=== PATIENT | female | born 1945 | race Caucasian/White ===

== ENCOUNTER 2019-04-28 06:04 | Inpatient (IN) | payer OTHER, SELFPAY ==
[2019-04-14 08:35] VITALS: BMI 30.6
[2019-04-28] VITALS (18 sets, daily range): BP systolic 109–160; BP diastolic 46–76; PULSE 72–87; RESP 10–20; TEMP 36.1–37; O2SAT 3–98; BMI 29.2
--- NOTE | 2019-04-28 06:37 | DI.RAD.S_ITS ---
PROCEDURE: XR SHOULDER RT 1V INDICATIONS: post op TECHNIQUE: Single AP view of the shoulder were acquired. COMPARISON: None. FINDINGS: Bones: Status post right shoulder arthroplasty. No acute hardware complication. Soft tissue drain is noted in the region. No acute fracture or dislocation. No suspicious bony lesions. Visualized ribs appear intact. Soft tissues: No suspicious soft tissue calcifications. IMPRESSION: Status post right shoulder arthroplasty. No acute hardware complications identified. Dictated by: Jason Vela M.D. on 04/28/2019 at 14:42 Approved by: Jason Vela M.D. on 04/28/2019 at 14:43
[2019-04-28] MEDS: LACTATED RINGERS 1,000 ML 42 ML IV ×2 (07:14→09:58)
[2019-04-28] MEDS: PREGABALIN 75 MG CAPSULE PO (07:17)
[2019-04-28] MEDS: ACETAMINOPHEN 325 MG TABLET 975 MG PO ×2 (07:17→20:56)
[2019-04-28] MEDS: MIDAZOLAM 2 MG/2 ML VIAL IV (08:05)
--- NOTE | 2019-04-28 08:09 | PM.PREOP ---
Pre-operative Note Interval Note History & Physical reviewed/Exam performed by Physician: Yes Changes to H&P: No
--- NOTE | 2019-04-28 08:12 | SUR.PREOP ---
Block start time [0805] . Monitoring initiated and maintained throughout procedure. Oxygen and medications given per anesthesiologist instructions. Patient remained stable throughout procedure, no adverse reactions noted. Block end time [0810]. Pt taken directly into the OR after completion of block in stable condition, vss.
[2019-04-28] MEDS: CEFAZOLIN 2 GM/100 ML FROZ.PIGGY IV (08:16)
--- NOTE | 2019-04-28 08:43 | SUR.OPER ---
Beach chair with Schlein shoulder positioner. Lower body on purple pads on padded OR bed. Head in foam padded head cradle, secured with straps. Non-operative arm secured <90 degrees abduction. Pillow under knees. Safety belt at thigh. Cloth tape over blanket over lower legs.
[2019-04-28] MEDS: THROMBIN (RECOMBINANT) 5,000 UNIT VIAL 5000 UNIT TOP (08:51)
[2019-04-28] MEDS: BUPIVACAINE 0.5% W/ EPI (PF) VIAL 30 ML INJ (08:51)
[2019-04-28] MEDS: TRANEXAMIC ACID 1,000 MG VIAL 1000 MG IV ×2 (08:54→09:44)
--- NOTE | 2019-04-28 08:56 | P.PCN_ITS ---
Procedures Date/Time Date of procedure: 04/28/19 Time of procedure: 07:59 Nerve Block Time out performed: Yes Local anesthetic used: other (10mL 0.5ropivacaine, 5mL 1* lidocaine) Location of anesthetic used: interscalene Amount of anesthesia used (mL): 20 Nerve blocks: brachial plexus (interscalene) Procedure successful: Yes Patient tolerated procedure: well Complications: none Additional comments: RIGHT Brachial plexus nerve block for post operative pain management. Risks and benefits discussed, including bleeding, infection, intravascular injection, nerve damage, block failure. Time out. Site marked, consent verified. Standard ASA monitors, NC O2. Pt supine. 1mg versed. Chloroprep site preparation, sterile technique. Brachial plexus identified with US guidance, traced from supraclavicular to interscalene. 1mL 2% lidocaine skin wheal. 22g x 50mm Pajunk advanced with in-plane US guidance to brachial plexus. Negative aspiration. LA injected with intermittent negative aspiration. Good LA spread noted on US. No pain, no paraesthesia. Pt tolerated procedure well. Vital signs stable.
--- NOTE | 2019-04-28 10:15 | PM.OP.1 ---
Operative Date/Time/Diagnoses Date of procedure: 04/28/19 Time of procedure: 10:00 Pre-op diagnosis: Right shoulder osteoarthritis Post-op diagnosis: same Procedure & Clinicians Procedure: Right total shoulder replacement Same procedure as scheduled: Yes Indications: The patient has had progressively worsening right shoulder pain with radiographic changes consistent with arthritis. Non-operative management has failed and the patient has requested total shoulder replacement. The risks, benefits and alternatives to surgery were discussed with the patient prior to proceeding. Risks discussed included, but were not limited to, failure to relieve pain, stiffness, infection, nerve damage, deep venous thrombosis, pulmonary embolism, stroke, coma, heart attack, permanent paralysis and , as well as the potential need for eventual revision of the prosthetic. Surgeon: Andrew Snider Human Resources Operations Coordinator: Whitney Brock Click Yes if Unassisted: No Anesthesia Type: General, Peripheral nerve block and Local Operative Notes Findings: Moderately severe osteoarthritis with early B2 glenoid. Closure Type: primary Specimen(s): none sent Prosthetic devices, grafts, tissues, transplants, or devices: Prosthetics used in this procedure were manufactured by the [employer] and included an Altivate short stem total shoulder system with a size 12 humeral stem, a neutral humeral neck and a 46 mm x 16 mm offset humeral head. In addition a 46 mm all polyethylene pegged E +glenoid was used. Applied: catheter Estimated Blood Loss (mL): 100 Blood products transfused: none Procedure in detail: The patient was seen in the pre-operative area, where the patient identified the right shoulder as the operative site and this was marked with my initials. The patient received pre-operative antibiotics, underwent an interscalene block, and was taken to the operating room and placed on the operative table in the supine position. After satisfactory anesthesia, a full ?time out? was performed. The patient was repositioned in the ?beach chair? position using a dedicated positioner. All pressure points were well padded, and the knees were slightly bent to prevent tension on the sciatic nerves. The right arm was prepared from the fingers to the base of the neck with ChloroPrep in the usual fashion and draped through sterile drapes. An approximately 15 cm incision was created, starting at the clavicle above the coracoid process and extended towards the deltoid insertion. The deltopectoral interval was used to access the shoulder. The cephalic vein was taken medially, but was damaged while attempting to cauterize some feeding vessels and therefore had to be cauterized itself. A self retaining retractor was placed. The upper centimeter of the pectoralis major tendon was released. The ?three sisters? were identified and cauterized. The axillary nerve was palpated and protected throughout the case. The biceps was released from its groove and tenodesed over the top of the pectoralis major tendon. The subscapularis was released from the lesser tuberosity with a subscapularis peel and tagged for later repair. The shoulder was dislocated and a cutting guide was used for the proximal humeral osteotomy in 30 degrees of retroversion. A starter reamer was used followed by the cylindrical reamers. This continued in larger sizes in till cortical bite was achieved. Sequential broaching was then performed until a line to line fit with the reamer occurred. A proximal humeral protector was then placed. We then removed the self-retaining retractor and placed retractors to access the glenoid. The subscapularis was released with a ?360 degree release? with care being taken to protect the axillary nerve with the inferior portion of this procedure. The remnant of labrum and biceps stump were removed. The appropriate size reamer was chosen with the glenoid sizer, and the guide pin placed. The glenoid was appropriately reamed. The guide for the peripheral holes was used and the center hole enlarged. The trial glenoid was placed with good stability. We then cemented the final implant into place after irrigating the peg holes and drying them with thrombin-soaked Gelfoam. We returned our attention to the humerus, a trial humeral head was applied and a trial reduction performed. Stability was checked with 50% posterior translation with spontaneous reduction, 45? external rotation at the side with the subscapularis held on the repaired position, and 70? of internal rotation in the ?scarecrow position?. This was felt to be satisfactory and the appropriate implants were opened. Five holes were drilled along the humeral osteotomy and #2 TiCron sutures placed for eventual subscapularis repair. The humeral prosthetic was impacted into the humerus. The humeral head was applied when the stem was still slightly proud and impacted to both seat the head and fully seat the stem. The joint was relocated one final time. The joint was irrigated and the subscapularis repaired to the previously placed sutures using Bryan-Raymond sutures. The top of the subscapularis was closed to the leading edge of the supraspinatus with a figure of 8 #2 TiCron to close the rotator interval. A deep drain was placed and brought out supero-laterally. The deltopectoral interval was closed with interrupted 0 Vicryl. The subcutaneous layer was closed with 3-0 Vicryl, and the skin with a running 3-0 V-Lock suture and SteriStrips. An Aquacel Ag dressing was applied, the patient?s arm was placed in a sling, and the patient was taken to recovery having tolerated the procedure well. Complications: none Post-operative Condition: stable Disposition: PACU Plan for aftercare: The patient will be maintained on a standard total shoulder replacement protocol with passive range of motion limited to 90 degrees forward flexion, 0 degrees external rotation at the side, 0 degrees abduction and internal rotation to the body. The patient will receive aspirin and sequential compression devices for DVT prophylaxis. The patient will be discharged home when safe for the home environment, likely tomorrow.
--- NOTE | 2019-04-28 11:00 | SUR.PHASEI ---
Patient somnolent, but arouses to voice. MORRIS's x 4. Answers simple questions appropriately. Cap refill , 3 seconds to right hand. Dressing CDI. Will continue to monitor.
[2019-04-28] MEDS: LACTATED RINGERS 1,000 ML 125 ML IV ×2 (11:45→19:32)
[2019-04-28] MEDS: ONDANSETRON 4 MG/2 ML INJ IV ×2 (14:20→18:22)
--- NOTE | 2019-04-28 15:53 | PT.IIE ---
Current Diagnoses Primary osteoarthritis, right shoulder (04/28/19) Surgery Performed Operation Date: 04/28/19 07:45 Actual Procedures p Total Shoulder Arthroplasty, biceps tendonesis(Right) - Andrew Snider MD Surgical History (Last Updated 04/14/19 @ 09:22 by Jennifer Walker, RN) History of colonoscopy (Acute) History of esophagogastroduodenoscopy (EGD) (Acute) Hx of appendectomy (Acute) Hx of bilateral cataract extraction (Acute ~2018) Hx of dilation and curettage (Acute) Hx of hemorrhoidectomy (Acute) Hx of tonsillectomy (Acute) Medical History (Last Updated 04/14/19 @ 12:50 by Jennifer Walker RN) Bronchitis (Acute) Chronic neck and back pain (Acute) Easy bruisability (Acute) GERD (gastroesophageal reflux disease) (Acute) H/O: hysterectomy (Acute) History of IBS (Acute) HTN (hypertension) (Acute) Impaired fasting glucose (Acute) Kidney stones (Acute) Prolapse of bladder (Acute) Stomach ulcer due to nonsteroidal anti-inflammatory drug (NSAID) (Acute) Physical Therapy Inpatient Evaluation/Re-Eval M1 PT/OT-IP Prior Functional Status Start: 04/28/19 17:30 Freq: NEEDED Status: Active Protocol: Document 04/28/19 15:53 AB (Rec: 04/28/19 18:07 AB [id number]) Medical Review Prior Functional Status Medical History Reviewed Yes Communication able to make needs known Mobility and Gait pt stated that she is independent with all mobilities and ambulation without AD Social History Household Members spouse,family Living Arrangements House Number of Floors (Floors) Two Floors Number of Stairs To Enter/Railing? pt stays on main level of the house has 3 steps with 2 wide rails and can only hold on to one rail at a time Home Environment High Toilet,Walk in Shower Home Equipment Front Wheel Walker,Hand Held Shower M2 PT-IP Current Condition Start: 04/28/19 17:30 Freq: NEEDED Status: Active Protocol: Document 04/28/19 15:53 AB (Rec: 04/28/19 18:07 AB [id number]) Physical Therapy Current Condition Current Condition Evaluation Date 04/28/19 Treatment Diagnosis s/p R TSR; difficulty in walking Onset Date 04/28/19 Precautions Shoulder Precautions Sling,PROM,Internal Rotation to Body,No External Rotation, No Abduction,Forward Flexion to 90 degrees,Pendulums Weight Bearing Status Weight Bearing Status Non-Weight Bearing Allowed Weight Bearing Amount (enter % NWB RUE or #) (%) M3 PT-IP Subjective Start: 04/28/19 17:30 Freq: NEEDED Status: Active Protocol: Document 04/28/19 15:53 AB (Rec: 04/28/19 18:07 AB [id number]) Subjective Physical Therapy Visit Type Type Initial Evaluation Visit Start Time 15:53 Visit Stop Time 16:50 Total Visit Minutes 57 Number of RESEARCH TECHNOLOGIST Visits 0 Physical Therapy Visit Comments Patient Comments pt agreeable to do PT M4 PT-IP Mobility and Gait Start: 04/28/19 17:30 Freq: NEEDED Status: Active Protocol: Document 04/28/19 15:53 AB (Rec: 04/28/19 18:07 AB [id number]) PT-Bed Mobility Assessment Supine to Sit Supine to Sit Minimal Assistance,1 Person Assistance Scooting Scooting to Edge of Bed Standby Assistance PT-Transfer Assessment Sit to and From Stand Sit to and from Stand Minimal Assistance,1 Person Assistance Equipment Transfer Assistive Device Gait Belt Orthotic/Prosthetic Devices or Brace: Yes Transfers Transfer Destination Toilet Transfer Technique pt ambulated without AD Transfer Ability Level of Assist Minimal Assistance,1 Person Assistance Comments Mobility Comments pt agreeable to do PT. completed supine to sit min A and cues. pt was able to sit on EOB SBA. completed sling management and educated pt. completed PROM on R elbow/hand as pt still does not have any motor control. adjusted sling. pt requested to use the toilet. completed sit to stand min A and cues and ambulated without AD. pt presents with unsteady gait. pt stated that she feels fuzzy and slightly run into the side of the wall. pt completed sit to stand from the toilet min A and was able to complete hygiene care with min A for stability. pt ambulated towards the sink min A without AD and completed handwashing CGA. pt requested to sit on the chair. ambulated min A. positioned on the chair. call light and table placed within reach. Gait Assessment Gait Gait Assistance Required: Minimum Assistance Distance (Feet) 10 Able to Maintain Weight Bearing Status Yes During Gait Assistive Devices Assistive Device None,Gait Belt Orthotic/Prosthetic Devices or Brace: Yes Gait Deviations General Gait Pattern Decreased Stride Length, Decreased Feet Clearance Factors Limiting Gait Function Factors Limiting Gait Function Decreased Activity Tolerance, Decreased Sensation,Decreased Strength,Incoordination, Limited Range of Motion,Poor Balance,Poor Safety Awareness Comments Gait Comments please refer to mobiltiy section for details PT-Balance Assessment Sitting Balance and Reactions Static Sitting Balance Ability Good Dynamic Sitting Balance Ability Good Standing Balance and Reactions Static Standing Balance Ability Fair Dynamic Standing Balance Ability Fair Device Used without AD M5 PT-IP Objective Assessments Start: 04/28/19 17:30 Freq: NEEDED Status: Active Protocol: Document 04/28/19 15:53 AB (Rec: 04/28/19 18:07 AB [id number]) Orientation Orientation/Cognition Level of Alertness Alert Orientation Name,Age,Place,Situation Language Function Ability No Deficits Noted Safety Awareness Understands Safety Issues Memory Description No Deficits Noted Gross Range of Motion Lower Extremity ROM Assessment Within Functional Limits Strength Lower Extremity Strength Assessment Within Functional Limits Sensation Assessment Sensation Gross Sensation Right UE Impaired Light Touch Impaired Proprioception (Position) Impaired Sensation Description Numbness Comments Sensation Comments stated that RUE still feels numb but can feel some on incision part Muscle Tone Muscle Tone WNL No Other Assessments Other Other Assessments still does not have motor control on RUE M6 PT-IP Treatment Start: 04/28/19 17:30 Freq: NEEDED Status: Active Protocol: Document 04/28/19 15:53 AB (Rec: 04/28/19 18:07 [id number]) Physical Therapy Treatment Exercises Exercises Elbow Flexion/Extension,Wrist ROM,Hand ROM Education Education Provided Precautions,Weight Bearing Status,Post-Op Packet,Safety Other Treatments Other Treatment Performed educated on don/doff of sling M7 PT-IP Assessment and Plan Start: 04/28/19 17:30 Freq: NEEDED Status: Active Protocol: Document 04/28/19 15:53 AB (Rec: 04/28/19 18:07 [id number]) PT Summary Assessment and Plan Potential Rehabilitation Potential Good Status of Condition at Evaluation Evolving Summary Impairments Pain,ROM,Strength,Balance, Coordination,Sensation,Tone, Cognition,Bed Mobility, Transfers,Gait,Activity Tolerance Assessment Summary pt just had surgery this morning and is requiring min A with mobility. pt will likely improve during hospital stay. d/c plan depending if spouse will be able to safely provide necessary assistance. set up caregiver training between 10-1030 am. will continue to assess. Goals Bed Mobility Goal Standby Assistance Transfer Goal Standby Assistance Gait Goal Standby Assistance Gait Distance 250 Other Goals up/down 3 steps with 1 rail SBA Days to Meet Goals 5 Frequency of Treatment Frequency Of Treatment Twice a Day Treatment Plan Physical Therapy Treatment Plan Bed Mobility Training,Transfer Training,Gait Training, Therapeutic Exercise,Balance Retraining,Post Op Education, Discharge Planning,Hot or Cold Pack,Neuromuscular Re-ed, Coordination Retraining,Manual Therapy Other Recommendations and Next Treatment cargiver training 04/29/19 1030 am Recommendations To Nursing Amount of Assist Needed 1 Person Assist Discharge Recommendations PT Discharge Recommendations Home with Assistance, Outpatient PT
[2019-04-28] MEDS: OXYCODONE IR 5 MG TABLET PO (17:01)
[2019-04-28] MEDS: METOCLOPRAMIDE 10 MG/2 ML INJ IV (19:32)
[2019-04-28] MEDS: LISINOPRIL 20 MG TABLET PO (20:55)
[2019-04-28] MEDS: AMLODIPINE 5 MG TABLET 10 MG PO (20:55)
[2019-04-28] MEDS: ASPIRIN EC 81 MG TABLET PO (20:56)
[2019-04-28] MEDS: NORTRIPTYLINE HCL 25 MG CAPSULE PO (23:24)
[2019-04-29] VITALS: BP 148/71; PULSE 82; RESP 21; TEMP 36.9; O2SAT 93
[2019-04-29] MEDS: LACTATED RINGERS 1,000 ML 125 ML IV (03:30)
[2019-04-29] MEDS: ACETAMINOPHEN 325 MG TABLET 975 MG PO (03:33)
--- NOTE | 2019-04-29 03:55 | PC.NURSE ---
Patient is alert and oriented. Breath sounds CTA with RA sat of 93%. HRR. Denies nausea. BT present and is passing flatus. Voiding on toilet and denies dysuria, frequency or urgency. Able to move self in bed and ambulates to bathroom with SBA. Dressing to right shoulder is CDI; hemovac is intact and compressed. Right UE is in sling; CMS is intact. Does complain of 3/10 pain in right arm but does not want to take Oxycodone as she thinks that may have been what made her nauseated on previous shift, so medicated with morning dose of Tylenol at this time per her request and ice pack applied. Has had bilateral SCD's on, but now requesting they be left off so she can sleep better. Did remind to ankle wave when awake since SCD's now off and patient verbalizes understanding. Fall risk score is low but bed alarm activated for overnight for safety; patient verbalizes understanding.
[2019-04-29 06:20] VITALS: BP 145/70; PULSE 79; RESP 19; TEMP 37.2; O2SAT 93
--- NOTE | 2019-04-29 06:49 | PM.DS.1 ---
History of Present Illness History of Present Illness Date Patient Seen: 04/29/19 Time Patient Seen: 06:50 Chief complaint: [id number] Narrative: History and physical are contained in the chart previously completed note. Please refer to that note for this information. Discharge Providers Provider Date of admission: 04/28/19 06:04 Discharge Date: 04/29/19 Primary care physician: Say Schmidt DO Consults: 04/28/19 11:33 Consult to Discharge Planning Routine Comment: Consult to Physical Therapy Evaluate & Treat Comment: Physician Instructions: Evaluate and Treat Discharge provider: Andrew Snider MD Summary Hospital Course Discharge Diagnosis: Right shoulder osteoarthritis Hospital Course: Patient was admitted to the hospital and taken directly to the operating room on April 28, 2019. She underwent a right total shoulder replacement without complication. On postoperative day 1 she reported she had had some nausea with her oxycodone but otherwise was stable. At the time of this dictation plan is for her to discharge today with hydrocodone for pain medication. Status at Discharge Cognitive/behavioral status at discharge: oriented Functional status at discharge: independent ambulation Overall status at discharge: patient is progressing back to baseline Time Spent with Patient Time spent: Less than 30 minutes Exam Vital Signs (past 8 hours): - 04/29/19 00:00 04/29/19 06:20 Temperature 98.5 F 98.9 F Pulse Rate 82 79 Respiratory Rate 21 19 Blood Pressure 148/71 H 145/70 H Pulse Oximetry 93 93 Fraction of Inspired Oxygen 21 Oxygen Delivery Method Room Air Oxygen Flow Rate 0 Narrative Exam Narrative: Right shoulder wound is dressed with no drainage on the bandage. Light touch is intact in the radial, ulnar, median, musculocutaneous and axillary nerve distribution. She can extend her thumb, abduct her thumb, abduct her fingers, fire her biceps and deltoid. Discharge Plan Discharge Plan Patient Disposition: Home Discharge Med Rec/Prescriptions Prescriptions: New hydrocodone-acetaminophen 5-325 mg Tablet 1 tab PO Q4HR PRN (Reason: Pain, Moderate (4-6)) Qty: 40 RF: 0 aspirin 81 mg Tablet,Delayed Release (Dr/Ec) 81 mg PO BID 14 Days Qty: 28 RF: 0 Continued amlodipine 10 MG tablet 10 mg PO QPM Qty: 0 RF: 0 lisinopril 20 MG tablet 20 mg PO QPM Qty: 0 RF: 0 nortriptyline 25 mg Capsule 25 mg PO BEDTIME RF: 0 omeprazole 20 mg Capsule,Delayed Release(Dr/Ec) 20 mg PO DAILY PRN (Reason: GERD) RF: 0 Multi-Day with Iron 18-400 mg-mcg Tablet 1 tab PO DAILY RF: 0 ascorbic acid (vitamin C) [Vitamin C] 1,000 mg Tablet Extended Release 1,000 mg PO DAILY RF: 0 lactase [Lactaid] 3,000 unit Tablet 3,000 unit PO QAC PRN (Reason: upset stomach) RF: 0 cranberry 400 mg Capsule 400 mg PO DAILY RF: 0 zinc 50 mg Tablet 50 mg PO DAILY RF: 0 Lactobacillus acidophilus [Acidophilus] Capsule 100 mmu cells PO DAILY RF: 0 B-complex with vitamin C [Super B/C] Capsule 1 cap PO DAILY RF: 0 Calcium 600 + D(3) 600 mg calcium- 200 unit Capsule 1 cap PO DAILY RF: 0 cholecalciferol (vitamin D3) [Vitamin D3] 2,000 unit Capsule 4,000 unit PO DAILY RF: 0 omega 2-swx-tlr-fish oil [Fish Oil] 1,000 mg (120 mg-180 mg) Capsule 1 cap PO DAILY RF: 0 [id number] serr [Glucosamine Daily Complex] 1,500-400-100 mg-unit-mg Tablet 1 tab PO DAILY RF: 0 turmeric 400 mg Capsule 2,000 mg PO DAILY RF: 0 Follow up/Referrals: Andrew Snider MD [Physician] - 2 Weeks Say Schmidt DO [Primary Care Provider] - Provider Discharge Instructions Diet: Diet as Tolerated and Regular Activity: You may use your right arm in front of your body below shoulder level. Keep the sling in place except for hygiene and to do your physical therapy exercises. Cold/Heat Therapy: Apply ice for 15 minutes of every hour as needed to the right shoulder for pain. Skin/Wound/Dressing Care Report to your healthcare provider any signs of infection, such as:: chills, fever, night sweats, increased pain, unusual drainage and unusual redness Dressing: Leave the dressing intact until your 1st postoperative follow-up. You may shower with the dressing in place. If the central portion of the dressing becomes saturated with either water or blood, please call the office. Visit Report/Discharge Packet Instructions: DI for Shoulder Replacement Stand Alone Forms: Surgery Discharge Discharge Data Primary Care Provider: Say Schmidt VTE Deep Vein Thrombosis/Pulmonary Embolism Present on Admission: No
[2019-04-29 07:56] LABS: Hematocrit 37.7 % (36-46); Hemoglobin 12.7 g/dL (12.0-16.0); Mean Corpuscular HGB Conc 33.8 % (30-36); Mean Corpuscular Volume 91.8 fL (80-100); Platelet Count 300 X10^3/uL (150-400); Red Cell Distribution Width 13.8 % (11.6-14.8); White Blood Cell Count 23.5 X10^3/uL (4.5-11.0)
[2019-04-29 08:25] VITALS: BP 151/68; PULSE 84; RESP 16; TEMP 37.3; O2SAT 93
[2019-04-29] MEDS: HYDROCODONE/ACET 5/325 TABLET 2 TAB PO (09:01)
--- NOTE | 2019-04-29 09:09 | CM.IDA ---
Initial DCP Assessment Note: Pt is a 73 yo female, resident of [place], now POD#1 from shoulder surgery w/ Dr Snider PCP: Say Schmidt Payer: Kg MCALLISTER Reviewed chart, pt discussed in multidisciplinary rounds this morning. Therapy has cleared pt for return home w/family to assist and pt has planned for home, DC order from [facility] has already been initiated this morning. No needs expected from DC planning team although will remain available in case this changes today. KIM Patel
--- NOTE | 2019-04-29 10:32 | PC.NURSE ---
Hemo vac removed per order. Gauze with tegaderm placed. Patient tolerated well.
--- NOTE | 2019-04-29 11:48 | OT.IP.EVAL ---
Current Diagnoses Primary osteoarthritis, right shoulder (04/28/19) Surgery Performed Operation Date: 04/28/19 07:45 Actual Procedures p Total Shoulder Arthroplasty, biceps tendonesis(Right) - Andrew Snider MD Past Medical History (Last Updated 04/14/19 @ 12:50 by Jennifer Walker, RN) Bronchitis (Acute) Chronic neck and back pain (Acute) Easy bruisability (Acute) GERD (gastroesophageal reflux disease) (Acute) H/O: hysterectomy (Acute) History of IBS (Acute) HTN (hypertension) (Acute) Impaired fasting glucose (Acute) Kidney stones (Acute) Prolapse of bladder (Acute) Stomach ulcer due to nonsteroidal anti-inflammatory drug (NSAID) (Acute) Surgical History (Last Updated 04/14/19 @ 09:22 by Jennifer Walker RN) History of colonoscopy (Acute) History of esophagogastroduodenoscopy (EGD) (Acute) Hx of appendectomy (Acute) Hx of bilateral cataract extraction (Acute ~2018) Hx of dilation and curettage (Acute) Hx of hemorrhoidectomy (Acute) Hx of tonsillectomy (Acute) Occupational Therapy Inpatient Evaluation/Re-Eval M1 PT/OT-IP Prior Functional Status Start: 04/29/19 11:23 Freq: NEEDED Status: Active Protocol: Document 04/29/19 11:23 [facility] (Rec: 04/29/19 11:48 [facility] [id number]) Medical Review Prior Functional Status Medical History Reviewed Yes Communication able to make needs known Mobility and Gait pt stated that she is independent with all mobilities and ambulation without AD Activities of Daily Living and IADL's Pt states completely independent with all ADl and IADl needs. Social History Household Members spouse,family Living Arrangements House Number of Floors (Floors) Two Floors Number of Stairs To Enter/Railing? pt stays on main level of the house has 3 steps with 2 wide rails and can only hold on to one rail at a time Home Environment High Toilet,Walk in Shower Home Equipment Front Wheel Walker,Hand Held Shower Additional Social History Comment Pt grand daughter lives in the house , however home schools young kids in the home as well so not available at all times . M2 OT-IP Current Condition Start: 04/29/19 11:23 Freq: Status: Active Protocol: Document 04/29/19 11:23 [facility] (Rec: 04/29/19 11:48 [facility] [id number]) Occupational Therapy Current Condition Current Condition Evaluation Date 04/29/19 Treatment Diagnosis Right shoulder Osteoarthritis, s/p R TSA Post Operative Precautions Shoulder Precautions Sling,PROM,Internal Rotation to Body,No External Rotation, No Abduction,Forward Flexion to 90 degrees,Pendulums Weight Bearing Status Weight Bearing Status Non-Weight Bearing M3 OT- IP Subjective and Pain Start: 04/29/19 11:23 Freq: Status: Active Protocol: Document 04/29/19 11:23 [facility] (Rec: 04/29/19 11:48 [facility] [id number]) OT- Subjective Occupational Therapy Visit Type Type Initial Evaluation Visit Start Time 10:15 Visit Stop Time 11:18 Total Visit Minutes 63 Occupational Therapy Visit Comments Patient Comments Pt agreeable to shower and present for caregiver training. Patient/Caregiver Goals To go home. OT Pain Assessment Pain When Pain Assessed During Mobility Pain Present Pain Present Pain Reported Location Right Shoulder Intensity 4 M4 OT- IP ADL's Start: 04/29/19 11:23 Freq: Status: Active Protocol: Document 04/29/19 11:23 [facility] (Rec: 04/29/19 11:48 [facility] [id number]) OT ADL-Dressing General Eval Upper Body Dressing Ability Maximum Assistance Lower Body Dressing Ability Moderate Assistance Comments OT Dressing Comments Pt's needing MAXA to be able to assist for sling management needs. Educated pt 's to be able to let her know what to do. After four times of sling management , pt and able to katia/doff sling successfully. Educated pt to lean forwards either sitting or standing to dangle right arm so able to get t-shirt sleeve over first and then over her head and then left arm. Emphasized to katia right arm first and take out last. OT ADL-Toileting General Evaluation Toileting Ability Standby Assistance OT ADL-Bathing Bathing Type Bathing Type Shower General Evaluation Bathing Ability Maximal Assistance Areas Needing Assistance Retrieving/Setting Up Items, Wash/Dry Back,Wash/Dry Perineal Area,Wash/Dry Lower Extremities Comments OT Bathing Comments Pt's able to assist for showering but still needing MODA vc for specifics of how to manage RUE during shower. Pt states grand daughter would be able to assist her as well. Recommended use of shower chair for safety . M5 OT- IP IADL's Start: 04/29/19 11:23 Freq: Status: Active Protocol: Document 04/29/19 11:23 [facility] (Rec: 04/29/19 11:48 [facility] [id number]) OT-Instrumental Activities of Daily Living Home Safety Awareness Home Safety Comments Pt's and grand daughter to assist for needs. Encourage pt to try to let family assist her as pt is used to being very independent . Medication Management Medication Management No Deficits Identified Money Management Money Management No Deficits Identified M6 OT- IP Functional Cognition Start: 04/29/19 11:23 Freq: Status: Active Protocol: Document 04/29/19 11:23 [facility] (Rec: 04/29/19 11:48 [facility] [id number]) Cognitive Factors Limiting Selfcare Function Cognitive Ability Level of Alertness Alert Patient Orientation Name,Age,Birthday,Month,Date, Year,Day of Week,Place, Situation Attention Span Ability Capable of Focused Attention, Capable of Sustained Attention Ability to Follow Commands Able to Follow Multi-Step Commands Memory Description No Deficits Noted Safety Awareness Underestimates Need for Assistance Cognitive Comments Cognitive Assessment Comments Mainly pt needing education to be sure to ask for assist from her family. Pt in the room trying to gather all her belongings and emphasized to have assist. M7 OT- IP Mobility and Balance Start: 04/29/19 11:23 Freq: Status: Active Protocol: Document 04/29/19 11:23 [facility] (Rec: 04/29/19 11:48 [facility] [id number]) OT-Transfer Assessment Sit to and From Stand Sit to and from Stand Independent Transfers Transfer Ability Standby Assistance,Contact Guard Assistance Technique Transfer Destination Bedside Commode,Chair,Shower Stall Devices Transfer Assistive Devices None OT- Balance Assessment Sitting Balance and Reactions Static Sitting Balance Ability Normal Dynamic Sitting Balance Ability Normal Standing Balance and Reactions Static Standing Balance Ability Normal Dynamic Standing Balance Ability Good Comments Other Balance Tests/Deviations/Treatment VC for pt to slow down as : tends to move very fast and reminder her that her balance will be off as now RUE in the sling. M8 OT- IP Objective Assessments Start: 04/29/19 11:23 Freq: Status: Active Protocol: Document 04/29/19 11:23 [facility] (Rec: 04/29/19 11:48 [facility] [id number]) OT Gross Range of Motion Upper Extremity Range of Motion Assessment Right Impaired OT Strength Comments Strength Comments VENRONE / M9 OT- IP Assessment and Plan Start: 04/29/19 11:23 Freq: Status: Active Protocol: Document 04/29/19 11:23 [facility] (Rec: 04/29/19 11:48 [facility] [id number]) OT Summary Assessment and Plan Potential Rehabilitation Potential Excellent Analytic Complexity at Evaluation Low Summary OT Impairments Balance,Dressing,Bathing, Shower Transfers Progress Towards Goals Progressing Toward Goals Assessment Summary Pt low complexity and main barrier is needing extensive assist for dressing and showering needs. Pt's has been trained however having difficulty with follow through of directions and needing his to talk him through to how to assist her. Spoke of getting a shower chair for the shower, to just focus on dangling her right UE as unable to do pendulums at this time without trying to elevate her shoulders, in addition educated to do shoulder retractions to help with her posture and prep for when cleared to start moving her RUE. Pt to go home with . Goals Patient/Caregiver Education Goal Demonstrate Post-Op Precautions,Caregiver Independent Assisting Patient Days to Meet Goals 1 Frequency of Treatment Frequency Of Treatment Once a Day Treatment Plan OT Treatment Plan Patient/Family Education, Discharge Planning Discharge Recommendations OT Discharge Recommendations Home with Assistance Home Equipment Needs shower chair
== END 2019-04-29 11:40 | disposition home or self-care (01) | DRG 483 ==
PROVIDERS: Admitting Provider Orthopaedic Surgery; PCP Family Medicine; Visit Provider Orthopaedic Surgery
PROC: 0RQJ0ZZ Repair Right Shoulder Joint, Open Approach (ICD-10-PCS; CPT 23472; principal; 2019-04-28 07:45)
DX: M19.011 Primary osteoarthritis, right shoulder (principal); I10 Essential (primary) hypertension
CPT/HCPCS: 36415; 64415; 73020; 85027; 94762; 97161; 97165; 97530; 97535; C1776; J0690; J1100; J2250; J2405; J2704; J2765; J3010

== ENCOUNTER → 2020-08-22 10:01 | Outpatient (CLI) | payer OTHER, SELFPAY ==
[2019-04-28 11:57] VITALS: BMI 29.2
[2020-08-22 11:37] LABS: Add Manual Diff / Slide Review NO; Basophils Absolute Auto 100 /uL (0-100); Basophils Percent Auto 0.6 % (0-2); Eosinophils Absolute Auto 200 /uL (0-450); Eosinophils Percent Auto 2.3 % (2-4); Hematocrit 41.5 % (36-46); Hemoglobin 14.1 g/dL (12.0-16.0); Lymphocytes Absolute Auto 3400 /uL (1100-4500); Lymphocytes Percent Auto 37.4 % (25-40); Mean Corpuscular HGB Conc 33.9 % (30-36); Mean Corpuscular Hemoglobin 31.8 PG (26-34); Mean Corpuscular Volume 93.6 fL (80-100); Monocytes Absolute Auto 900 /uL (0-900); Monocytes Percent Auto 9.6 % (3-14); Neutrophils Absolute Auto 4500 /uL (1500-7000); Neutrophils Percent Auto 50.1 % (50-75); Platelet Count 348 X10^3/uL (150-400); Red Blood Cell Count 4.43 X10^6/uL (4.0-5.2); Red Cell Distribution Width 13.6 % (11.6-14.8)
[2020-08-22 11:58] LABS: Hemoglobin A1C% w Est Avg Glu 6.6 % (4.0-6.0)
[2020-08-22 12:10] LABS: BUN Creatinine Ratio 27.4 (6-22); Blood Urea Nitrogen 17 mg/dL (7-17); Calcium 9.4 mg/dL (8.4-10.2); Carbon Dioxide 31 mmol/L (22-32); Chloride 104 mmol/L (98-107); Estimated Glomerular Filt Rate > 60.0 mL/min (>60); Glucose 110 mg/dL (80-110); HEMOLYSIS < 15 (0-50); Potassium 4.1 mmol/L (3.4-5.1); Sodium 138 mmol/L (137-145)
== END ==
PROVIDERS: PCP Family Medicine; Referring Provider Orthopaedic Surgery; Visit Provider Orthopaedic Surgery
DX: Z01.818 Encounter for other preprocedural examination (principal); Z01.812 Encounter for preprocedural laboratory examination; R73.9 Hyperglycemia, unspecified; M25.512 Pain in left shoulder
CPT/HCPCS: 36415; 80048; 83036; 85025; 93005; 93010

== ENCOUNTER → 2020-09-09 10:58 | Outpatient (CLI) | payer OTHER, SELFPAY ==
[2019-04-28 11:57] VITALS: BMI 29.2
[2020-09-09 13:50] LABS: COVID19 -Nasal RAPID Negative (Negative)
== END ==
PROVIDERS: PCP Family Medicine; Visit Provider Nurse Practitioner
DX: Z01.812 Encounter for preprocedural laboratory examination (principal); Z20.822 Contact with and (suspected) exposure to COVID-19
CPT/HCPCS: 87635

== ENCOUNTER 2020-09-11 08:41 | Day surgery (SDC) | payer OTHER, SELFPAY ==
[2019-04-28 11:57] VITALS: BMI 29.2
[2020-09-11] VITALS (15 sets, daily range): BP systolic 126–169; BP diastolic 52–84; PULSE 77–86; RESP 12–18; TEMP 36–37.2; O2SAT 91–100; BMI 28.7
--- NOTE | 2020-09-11 06:00 | DI.RAD.S_ITS ---
PROCEDURE: XR KNEE LT 1TO2V INDICATIONS: post op films TECHNIQUE: 2 views of the knee acquired. COMPARISON: None. FINDINGS: Bones: Patient is status post total knee joint arthroplasty. Hardware components are in expected positions. Visualized bony structures are intact. Soft tissues: Overlying postoperative changes are noted. IMPRESSION: Status post left total knee arthroplasty with expected postoperative findings. Dictated by: Markos Gates M.D. on 09/11/2020 at 14:38 Approved by: Markos Gates M.D. on 09/11/2020 at 14:39
[2020-09-11] MEDS: ACETAMINOPHEN 325 MG TABLET 975 MG PO (09:16)
[2020-09-11] MEDS: LACTATED RINGERS 1,000 ML 42 ML IV ×2 (09:27→11:40)
--- NOTE | 2020-09-11 09:50 | PM.PREOP ---
Pre-operative Note COVID-19 COVID-19 status: Negative Result date/Date tested (Pos, Neg/Pending): 09/09/20 Interval Note History & Physical reviewed/Exam performed by Physician: Yes Changes to H&P: No
--- NOTE | 2020-09-11 10:08 | P.OP_ITS ---
Operative Date/Time/Diagnoses Date of procedure: 09/11/20 Time of procedure: 12:12 Pre-op diagnosis: Left knee osteoarthritis Post-op diagnosis: same Procedure & Clinicians Procedure: Left total knee replacement Same procedure as scheduled: Yes Indications: The patient has had progressively worsening left knee pain with radiographic changes consistent with arthritis. Non-operative management has failed and the patient has requested total knee replacement. The risks, benefits and alternatives to surgery were discussed with the patient prior to proceeding. Risks discussed included, but were not limited to, failure to relieve pain, stiffness, infection, nerve damage, deep venous thrombosis, pulmonary embolism, stroke, coma, heart attack, permanent paralysis and , as well as the potential need for eventual revision of the prosthetic. Surgeon: Andrew Snider Information Systems Auditor: Yan Garrett Click Yes if Unassisted: No Anesthesia Type: Local Operative Notes Findings: Severe patellofemoral and moderate medial osteoarthritis with mild lateral compartment disease. Closure Type: primary Specimen(s): none sent Prosthetic devices, grafts, tissues, transplants, or devices: Implants used in this procedure were manufactured by the [employer] and included the BCS II Journey total knee replacement with a size 5 left cobalt chromium femur, a size 4 left non porous tibial base plate, a 9 mm cross-linked polyethylene tibial insert and a 35 mm oval Treasure II patellar component. Applied: implant(s) Estimated Blood Loss (mL): 25 Blood products transfused: none Procedure in detail: The patient was seen in the pre-operative area, where the left knee was identified as the operative site and this was marked with my initials. The patient received pre-operative antibiotics, and was taken to the operating room and placed on the operative table in the supine position. After satisfactory anesthesia, a timekeeper supervisor out was performed. The left leg was encircled with a tourniquet about the proximal thigh, and the leg was prepared from the toes to the tourniquet with ChloroPrep in the usual fashion and draped through sterile drapes. The leg was elevated and exsanguinated with Eschmark bandage and the tourniquet inflated to 250 mmHg pressure. The knee was approached through an approximately 18 cm incision centered over the patella and carried into the knee through a medial parapatellar arthrotomy. The anterior osteophytes and soft tissues were removed. The rotational landmarks of Princess's line and the transepicondylar axis were marked on the femur with electrocautery, and intramedullary guide holes for the femur and tibia were created. The distal femoral cut was made in 6 degrees of valgus using the intramedullary guide at the primary cut setting. The proximal tibial cut was then made using the intramedullary guide, taking 9 mm of bone off the less involved side. The extension gap was checked and the rotation of the femoral component confirmed with the gap balancing blocks. The anterior, posterior and chamfer cuts were then made. The posterior osteophytes and soft tissues were then removed. The posterior capsule was injected with part of a mixture of 60 ml 0.25% Marcaine mixed with 20 ml Exparel and 4 mg of morphine for post-operative pain control. The remainder of this mixture was injected into the capsule and subcutaneous tissues during cement curing. The tibia was prepared with the rotation set by an extra medullary guide. Trial tibial and femoral components were then placed and the intercondylar notch cut t hrough the femoral trial. Range of motion was 0-135 degrees, with good stability throughout the range. The patella was then cut to accommodate the patellar prosthetic. There was no need for a lateral release. The trials were then removed, and the femoral hole plugged with a bone plug. The bone was prepared with pulsatile lavage, and dried with a sponge. Cement was applied and the final prosthetics placed. Excess cement was removed during and after cement curing. After confirming there was no extruded cement posteriorly, the final tibial insert was placed. The knee was copiously irrigated and the tourniquet deflated. Hemostasis was obtained. The capsule was closed with interrupted # 2 polyester sutures. The subcutaneous layer was closed with 3-0 Vicryl, and the skin with a running 3-0 V-Lock suture and Dermabond. An Aquacel Ag dressing was applied and the patient was taken to recovery having tolerated the procedure well. Complications: none Post-operative Condition: stable Disposition: PACU Plan for aftercare: The patient will be maintained on a standard total knee replacement protocol with weight bearing as tolerated. The patient will receive aspirin and sequential compression devices for DVT prophylaxis. The patient will be discharged home when safe for the home environment.
[2020-09-11] MEDS: CEFAZOLIN 2 GM/100 ML FROZ.PIGGY IV (10:33)
[2020-09-11] MEDS: TRANEXAMIC ACID 1,000 MG VIAL 1000 MG INJ ×2 (10:45→11:52)
[2020-09-11] MEDS: BUPIVACAINE 0.25% W/ EPI 30 ML VIAL 60 ML INJ (11:11)
[2020-09-11] MEDS: MORPHINE 4 MG/ML INJ INJ (11:12)
[2020-09-11] MEDS: BUPIVACAINE LIPOSOME 266 MG/20 ML VIAL INJ (11:12)
--- NOTE | 2020-09-11 11:18 | SUR.OPER ---
Supine on padded OR bed. Pillow under head, arms secured on padded armboards <90 degree abduction. Safety belt across torso. Non-operative leg secured with tape over blanket over lower leg. Operative leg secured in DeMayo/Charbel positioner. Foam padded brace at thigh of operative leg.
[2020-09-11] MEDS: fentaNYL 100 MCG/2 ML INJ 50 MCG IV ×2 (12:21→12:32)
--- NOTE | 2020-09-11 12:57 | SUR.PHASEI ---
Report to Annie ARREOLA
[2020-09-11] MEDS: LACTATED RINGERS 1,000 ML 100 ML IV (13:25)
[2020-09-11] MEDS: OXYCODONE IR 5 MG TABLET PO ×2 (13:57→19:21)
--- NOTE | 2020-09-11 14:39 | PT.IIE ---
Current Diagnoses Unilateral primary osteoarthritis, left knee (09/11/20) Surgery Performed Operation Date: 09/11/20 10:45 Actual Procedures p Total Knee Arthroplasty(Left) - Andrew Snider MD Surgical History (Last Updated 09/04/20 @ 09:31 by Allison Tijerina, RN) H/O: hysterectomy History of colonoscopy History of esophagogastroduodenoscopy (EGD) History of total replacement of right shoulder joint Hx of appendectomy Hx of bilateral cataract extraction (~2018) Hx of dilation and curettage Hx of hemorrhoidectomy Hx of tonsillectomy Medical History (Last Updated 09/04/20 @ 09:31 by Allison Tijerina, RN) Arthritis Bronchitis Chronic neck and back pain Easy bruisability GERD (gastroesophageal reflux disease) History of IBS HTN (hypertension) Impaired fasting glucose Kidney stones Osteoporosis Prolapse of bladder Stomach ulcer due to nonsteroidal anti-inflammatory drug (NSAID)
--- NOTE | 2020-09-11 15:01 | PC.NURSE ---
patient A/O x 4, LLE aquacel and master wrap intact. Pulses equal bilaterally. No swelling noted. Patient reports sensation. Pain 4/10, PO oxy 5 mg administered. Patient denies N/V. SCD's on, IV infusing LR @100cc/hr. Lungs clear. IS bedside, patient educated, patient demonstrated. Call light in reach, bed alarm on. Patient has yet to void post-op
[2020-09-11] MEDS: ACETAMINOPHEN 325 MG TABLET 650 MG PO ×2 (15:50→20:29)
--- NOTE | 2020-09-11 16:01 | PT.IIE ---
Current Diagnoses Unilateral primary osteoarthritis, left knee (09/11/20) Surgery Performed Operation Date: 09/11/20 10:45 Actual Procedures p Total Knee Arthroplasty(Left) - Andrew Snider MD Surgical History (Last Updated 09/04/20 @ 09:31 by Allison Tijerina, RN) H/O: hysterectomy History of colonoscopy History of esophagogastroduodenoscopy (EGD) History of total replacement of right shoulder joint Hx of appendectomy Hx of bilateral cataract extraction (~2017) Hx of dilation and curettage Hx of hemorrhoidectomy Hx of tonsillectomy Medical History (Last Updated 09/04/20 @ 09:31 by Alliosn Tijerina, RN) Arthritis Bronchitis Chronic neck and back pain Easy bruisability GERD (gastroesophageal reflux disease) History of IBS HTN (hypertension) Impaired fasting glucose Kidney stones Osteoporosis Prolapse of bladder Stomach ulcer due to nonsteroidal anti-inflammatory drug (NSAID) Physical Therapy Inpatient Evaluation/Re-Eval M1 PT/OT-IP Prior Functional Status Start: 09/11/20 15:16 Freq: NEEDED Status: Active Protocol: Document 09/11/20 16:01 AW (Rec: 09/11/20 16:21 AW [id number]) Medical Review Prior Functional Status Medical History Reviewed Yes Communication WNL. Pt is able to make her needs known Mobility and Gait Pt is independent with mobility but states she does tend to lean heavily on a shopping cart when she gets her groceries. Activities of Daily Living and IADL's Pt has been needing help with shoes and socks but otherwise remains indpendent with ADL's. She is an active dairy truck driver. Prior Functional Level (Other details) Pt had R TSA in April 2019 . She has less pain but continues to struggle with R shoulder ROM. Social History Household Members spouse,family Living Arrangements House Number of Floors (Floors) Two Floors Number of Stairs To Enter/Railing? 4 KENISHA with wide bilateral rails. There is a finished basement but pt has no need to go downstairs. Home Environment High Toilet,Walk in Shower, Built-In Shower Seat Home Equipment Front Wheel Walker,Straight Cane,Hand Held Shower,Long Handled Shoe Horn,Independent Consultant,Sock Aid Additional Social History Comment Pt lives with her spouse, Curtis. She states her spouse has some memory issues and no longer drives. Pt's son will pick her up and assist her into the house. Pt also lives with her granddaughter, granddaughter's , and her two kids. Pt states there will nearly always be someone around to help. M2 PT-IP Current Condition Start: 09/11/20 15:16 Freq: NEEDED Status: Active Protocol: Document 09/11/20 16:01 AW (Rec: 09/11/20 16:21 AW [id number]) Physical Therapy Current Condition Current Condition Evaluation Date 09/11/20 Treatment Diagnosis L TKA; difficulty in walking Onset Date 09/11/20 Weight Bearing Status Weight Bearing Status Weight Bear as Tolerated Allowed Weight Bearing Amount (enter % WBAT LLE or #) (%) M3 PT-IP Subjective Start: 09/11/20 15:16 Freq: NEEDED Status: Active Protocol: Document 09/11/20 16:01 AW (Rec: 09/11/20 16:21 AW [id number]) Subjective Physical Therapy Visit Type Type Initial Evaluation Visit Start Time 15:27 Visit Stop Time 16:01 Total Visit Minutes 34 Physical Therapy Visit Comments Patient Comments Pt is willing to participate with PT Patient Goals Return home with family support Therapy Pain Assessment Pain When Pain Assessed At Rest Pain Present Pain Present Pain Reported Location Left Knee Intensity 3 Scale Used 3/10 at rest; 4/10 with mobility Pain Management Techniques Apply Cold,Re-positioning, Timing of Activity with Medications M4 PT-IP Mobility and Gait Start: 09/11/20 15:16 Freq: NEEDED Status: Active Protocol: Document 09/11/20 16:01 AW (Rec: 09/11/20 16:21 AW [id number]) PT-Bed Mobility Assessment Supine to Sit Supine to Sit Standby Assistance Scooting Scooting to Edge of Bed Standby Assistance PT-Transfer Assessment Sit to and From Stand Sit to and from Stand Contact Guard Assistance,Use of Upper Extremities Equipment Transfer Assistive Device Gait Belt,Front Wheeled Walker Orthotic/Prosthetic Devices or Brace: No Transfers Transfer Destination Chair,Toilet Transfer Technique Stand Step Pivot Transfer Ability Level of Assist Contact Guard Assistance Comments Mobility Comments Pt was reclined in the bed as PT arrived. She completed supine to sit at left EOB SBA from flat bed and was able to sit with and without UE support without complaint. She stood from the bed with cues for hand placement CGA and used the FWW to shift her weight laterally. She ambulated to the toilet by pushing the walker forward and then stepping in, leading with LLE. She transferred to the toilet CGA, steadying herself with right hand on the toilet seat and left hand on the walker. She voided and then completed pericare in half squat position. She stood and pulled up her own briefs before ambulating to the toilet with FWW CGA as PT managed the IV pole. Pt was able to reach outside her ASIF in standing with good balance. She then ambulated to the chair and transferred CGA. She was positioned on the chair with call light and all needs in reach. Gait Assessment Gait Gait Assistance Required: Contact Guard Assist Distance (Feet) 15 Able to Maintain Weight Bearing Status Yes During Gait Assistive Devices Assistive Device Gait Belt,Front Wheeled Walker Orthotic/Prosthetic Devices or Brace: No Gait Deviations General Gait Pattern Antalgic,Decreased Stride Length,Decreased Feet Clearance,Flexed Trunk,Step-to Gait Factors Limiting Gait Function Factors Limiting Gait Function Decreased Activity Tolerance, Decreased Sensation,Decreased Strength,Limited Range of Motion,Pain Comments Gait Comments See mobility comments for details. Stair Climbing Assessment Comments Stair Climbing Comments Not assessed. PT-Balance Assessment Sitting Balance and Reactions Static Sitting Balance Ability Normal Dynamic Sitting Balance Ability Normal Standing Balance and Reactions Static Standing Balance Ability Good Dynamic Standing Balance Ability Good Device Used FWW M5 PT-IP Objective Assessments Start: 09/11/20 15:16 Freq: NEEDED Status: Active Protocol: Document 09/11/20 16:01 AW (Rec: 09/11/20 16:21 AW [id number]) Orientation Orientation/Cognition Level of Alertness Alert Orientation Name,Day of Week,Place, Situation Language Function Ability No Deficits Noted Safety Awareness Understands Safety Issues Memory Description No Deficits Noted Gross Range of Motion Upper Extremity ROM Assessment Right Impaired Impairments Prior R TSA. Flexion limited to ~120 degrees but functional and without pain. Lower Extremity ROM Assessment Left Impaired Strength Lower Extremity Strength Assessment Left Impaired Hip 4-/5 Knee 3/5 Ankle 4/5 Comments Strength Comments RLE grossly 4+/5 Sensation Assessment Sensation Gross Sensation Right LE Impaired,Left LE Impaired Sensation Description Numbness Comments Sensation Comments Numbness reported at buttocks and posterior thighs M6 PT-IP Treatment Start: 09/11/20 15:16 Freq: NEEDED Status: Active Protocol: Document 09/11/20 16:01 AW (Rec: 09/11/20 16:21 AW [id number]) Physical Therapy Treatment Exercises Exercises Ankle Pumps,Quad Sets,Heel Slides,Passive Knee Extension Hang,Seated Knee Flexion/ Extension Education Education Provided Precautions,Weight Bearing Status,Post-Op Packet,Safety Other Treatments Other Treatment Performed Provided education on role of PT, plan of care, weightbearing status, and safe use of FWW. M7 PT-IP Assessment and Plan Start: 09/11/20 15:16 Freq: NEEDED Status: Active Protocol: Document 09/11/20 16:01 AW (Rec: 09/11/20 16:21 AW [id number]) PT Summary Assessment and Plan Potential Rehabilitation Potential Good Status of Condition at Evaluation Evolving Summary Impairments Pain,ROM,Strength,Balance, Sensation,Bed Mobility, Transfers,Gait Assessment Summary Grace is a 74 yo woman seen for PT evaluation on POD0 following L TKA. She is an independent ambulator at baseline but admits limits in community ambulation due to knee pain. She required SBA to CGA for all mobilities on evaluation. Pt has good support at home and will likely be safe to discharge home with assist and outpatient PT (already set up) once medically cleared. She will need to complete stair training before she leaves. Goals Bed Mobility Goal Independent Transfer Goal Standby Assistance,Front Wheeled Walker Gait Goal Standby Assistance,Front Wheel Walker Gait Distance 120 Other Goals - up/down 4 steps with unilateral rail SBA Frequency of Treatment Frequency Of Treatment Twice a Day Treatment Plan Physical Therapy Treatment Plan Bed Mobility Training,Transfer Training,Gait Training, Therapeutic Exercise,Balance Retraining,Post Op Education, Discharge Planning,Hot or Cold Pack,Neuromuscular Re-ed Other Recommendations and Next Treatment review ther ex; gait training Focus with FWW; stairs when safe Recommendations To Nursing Amount of Assist Needed 1 Person Assist Discharge Recommendations PT Discharge Recommendations Home with Assistance, Outpatient PT Transportation Needs at Discharge Private Vehicle
[2020-09-11] MEDS: AMLODIPINE 5 MG TABLET 10 MG PO (17:16)
[2020-09-11] MEDS: lisinopriL 20 MG TABLET PO (17:16)
[2020-09-11] MEDS: DOCUSATE 100 MG CAPSULE PO (20:29)
[2020-09-11] MEDS: ASPIRIN EC 81 MG TABLET PO (20:29)
[2020-09-11] MEDS: NORTRIPTYLINE HCL 25 MG CAPSULE PO (20:29)
[2020-09-11] MEDS: MELATONIN 3 MG TABLET 9 MG PO (20:29)
[2020-09-12] VITALS: BP 154/75; PULSE 85; RESP 16; TEMP 36.6; O2SAT 92
[2020-09-12] MEDS: OXYCODONE IR 5 MG TABLET PO ×2 (04:39→09:49)
[2020-09-12 04:43] VITALS: BP 148/81; PULSE 91; RESP 16; TEMP 37; O2SAT 99
[2020-09-12] MEDS: PANTOPRAZOLE 20 MG TABLET PO (05:39)
--- NOTE | 2020-09-12 07:46 | P.DS_ITS ---
History of Present Illness History of Present Illness Date Patient Seen: 09/12/20 Time Patient Seen: 07:46 Chief complaint: OPB Narrative: The history and physical is contained in the chart in a previously completed note. Please refer to that note for this information. Discharge Providers Provider Discharge Date: 09/12/20 Primary care physician: Say Schmidt DO Consults: 09/11/20 13:19 Consult to Discharge Planning Routine Comment: Consult to Physical Therapy Evaluate & Treat Comment: Physician Instructions: postop TKA protocol Consult to Respiratory Therapy Evaluate & Treat Comment: Physician Instructions: Evaluate and treat Discharge provider: Andrew Snider MD Summary Hospital Course Discharge Diagnosis: Left knee osteoarthritis Hospital Course: The patient was admitted to the hospital and taken directly to the operating room on September 11, 2020. She underwent a left total knee replacement without complications. On postoperative day 1 she was reasonably comfortable and appeared to be ready for discharge home. Status at Discharge Cognitive/behavioral status at discharge: oriented Functional status at discharge: uses cane/walker Overall status at discharge: patient is progressing back to baseline Time Spent with Patient Time spent: Less than 30 minutes Exam Vital Signs (past 8 hours): - 09/12/20 00:00 09/12/20 04:43 Temperature 97.8 F 98.6 F Pulse Rate 85 91 H Respiratory Rate 16 16 Blood Pressure 154/75 H 148/81 H Pulse Oximetry 92 99 Oxygen Delivery Method Nasal Cannula Oxygen Flow Rate 0 Narrative Exam Narrative: Left knee wound is dressed with no drainage on the bandage. Calf is soft. Light touch and motion are intact in the left lower extremity. Objective Labs Result Diagrams: 09/12/20 04:42 Labs: Laboratory Results - last 24 hr 09/12/20 04:42 Hgb 13.0 [facility] 39.0 [facility] Medical History (Updated 09/04/20 @ 09:31 by Allison Tijerina RN) Arthritis Bronchitis Chronic neck and back pain Easy bruisability GERD (gastroesophageal reflux disease) History of IBS HTN (hypertension) Impaired fasting glucose Kidney stones Osteoporosis Prolapse of bladder Stomach ulcer due to nonsteroidal anti-inflammatory drug (NSAID) Surgical History (Updated 09/04/20 @ 09:31 by Allison Tijerina RN) H/O: hysterectomy History of colonoscopy History of esophagogastroduodenoscopy (EGD) History of total replacement of right shoulder joint Hx of appendectomy Hx of bilateral cataract extraction (~2018) Hx of dilation and curettage Hx of hemorrhoidectomy Hx of tonsillectomy Social History household members: spouse and family Smoking Status: Never smoker alcohol intake: never Discharge Assessment & Plan Assessment and Plan Assessment: Stable postoperative day 1 status post left total knee replacement. Plan of Treatment: Discharge to home today with follow-up in 10-14 days. Outpatient physical therapy. Prescriptions have been sent to her pharmacy for oxycodone. She has been instructed in the use of Tylenol for pain relief and aspirin for DVT prophylaxis. Discharge Plan Discharge Plan Patient Disposition: Home Discharge orders & Medications Discharge Orders: Discharge (Order); Ordered 09/12/20 Ordered By: Andrew Snider Prescriptions: New acetaminophen 325 mg Tablet 650 mg PO TID 30 Days Qty: 180 RF: 0 aspirin 81 mg Tablet,Delayed Release (Dr/Ec) 81 mg PO BID 42 Days Qty: 84 RF: 0 oxycodone 5 mg Tablet 5 mg PO Q4H PRN (Reason: Pain, Moderate (4-6)) Qty: 40 RF: 0 Continued amlodipine 10 MG tablet 10 mg PO QPM Qty: 0 RF: 0 lisinopril 20 MG tablet 20 mg PO QPM Qty: 0 RF: 0 nortriptyline 25 mg Capsule 25 mg PO BEDTIME RF: 0 Multi-Day with Iron 18-400 mg-mcg Tablet 1 tab PO DAILY RF: 0 Vitamin C 1,000 mg Tablet Extended Release 1,000 mg PO DAILY RF: 0 cranberry 400 mg Capsule 400 mg PO DAILY RF: 0 zinc 50 mg Tablet 50 mg PO DAILY RF: 0 B-complex with vitamin C [Super B/C] Capsule 1 cap PO DAILY RF: 0 cholecalciferol (vitamin D3) [Vitamin D3] 2,000 unit Capsule 4,000 unit PO BID RF: 0 omega 1-lca-zwz-fish oil [Fish Oil] 1,000 mg (120 mg-180 mg) Capsule 1 cap PO DAILY RF: 0 turmeric 400 mg Capsule 1,000 mg PO DAILY RF: 0 diclofenac sodium [Voltaren] 1 % Gel 1 g TOPICAL BID RF: 0 calcium 600 mg Capsule 600 mg PO DAILY RF: 0 glucosamine sulfate 750 mg Tablet 1,500 mg PO DAILY RF: 0 Glucosamine Complex-MSM Capsule 1 cap PO DAILY RF: 0 coQ10 (ubiquinol) 100 mg Capsule 300 mg PO DAILY RF: 0 strontium [id number] 680-30 mg Tablet 1 tab PO QPM RF: 0 omeprazole 20 mg Tablet,Delayed Release (Dr/Ec) 20 mg PO DAILY RF: 0 melatonin 10 mg Tablet 10 mg PO BEDTIME RF: 0 Discontinued aspirin 81 mg Capsule,Delayed Release(Dr/Ec) 81 mg PO DAILY RF: 0 Follow up/Referrals: Andrew Snider MD [Physician] - 2 Weeks Say Schmidt DO [Primary Care Provider] - Diet/Activity/Treatments Diet: Diet as Tolerated and Regular Activity: You may bear weight as tolerated on your left knee. Cold/Heat Therapy: You may apply ice for 15 minutes of every hour as needed for pain control to the left knee. Skin/Wound/Dressing Care Report to your healthcare provider any signs of infection, such as:: chills, fever, night sweats, increased pain, unusual drainage and unusual redness Dressing: You may remove the Price wrap 3 days after surgery and shower normally. Leave the deeper dressing in place until follow-up. If the central strip of the deeper dressing becomes saturated with either water or blood, please call the office to have it evaluated. Visit Report/Discharge Packet Instructions: DI for Knee Replacement, DI for Constipation, How to Prevent Falls Stand Alone Forms: Surgery Discharge Discharge Data Primary Care Provider: Say Schmidt Attending Provider: Andrew Snider Quality VTE Deep Vein Thrombosis/Pulmonary Embolism Present on Admission: No
[2020-09-12 08:00] VITALS: BP 150/72; PULSE 82; RESP 18; TEMP 37.4; O2SAT 99
--- NOTE | 2020-09-12 09:24 | CM.DPNOTE ---
Discharge Planning/Care Management CM Discharge Assessment Start: 09/12/20 09:21 Freq: Status: Active Protocol: Document 09/12/20 09:22 AL (Rec: 09/12/20 09:24 AL [id number]) Discharge Planning Assessment Assigned Nurse Informaticist KIM Strickland Student Contact Information Anthony Juan Advance Directives? Yes Advance Directives on File Yes: per patient History Provided By Patient,Medical Record Has Patient been admitted in last 30 No days? Prior Living Arrangements House Household Members spouse,family,children Type of transporation used prior to Drives own vehicle admit Independent with ADL's Yes Is patient alert and oriented? Yes Caregiver for Another No Patient/Family Preference OP PT Therapy Comment Patient has first appointment set-up for Friday at [facility] Barriers to Discharge No Discharge Plan Home Transportation Arrangement Jose Manuel Juan will provide transportation Referrals Initiated None needed Whiteboard Updated in Patient Room with Yes name and ext. # of Nurse Informaticist Review Status In Process Pre-Anesthesia Assessment Start: 09/04/20 09:26 Freq: Status: Active Protocol: Document 09/04/20 09:27 [facility] (Rec: 09/04/20 09:44 [facility] [id number]) Pre-Anesthesia Assessment Preferred Name Grace Patient Information Reviewed Via Chart Review,Phone Assessment Assessment Completed With Patient H&P Completed Within 30 Days Yes Diagnostic Results BMP/CMP,CBC,Other Comment A1c, Covid Primary Care Provider Say Schmidt Seen Specialist in Last 12 Months Yes Specialist Seen Orthopedist Preferred Language Estonian Utility Accounts Director Required No Height 154.94 cm Hearing Ability Normal Visual Impairment Partially Limited Visual Assist Glasses Dentition Type Teeth, Natural Present Barriers to Learning Visual Other Aids No Hx Anesthesia Reactions Yes: PONV w/last colonoscopy/ egd Hx Family Anesthesia Reaction No Hx Malignant Hyperthermia No Hx Blood Transfusions Yes: hemorrhage w/3rd vaginal delivery Hx Blood Transfusion Reaction No Anesthesia Review Requested No Culinary Assistant No alcohol intake never Smoking Status Never smoker Substance Use Type does not use Pain Present Pain Reported Comment left knee, hips, low back Musculoskeletal Symptoms Abnormal Gait,Back Pain, Difficulty Walking,Joint Pain, Joint Stiffness,Joint Swelling ,Limited Range of Motion, Muscle Cramps History of Falling (Recent or History of No ) Comment tripped on steps 2 years ago Patient is completely paralyzed or No completely immobile Ambulatory Aid None/bed rest/nurse assist Gait/Transferring Normal/bedrest/immobile Mental Status Oriented to own ability Is patient on oxygen? 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 Are you experiencing any of these No symptoms symptoms? Evaluation/Screening for possible COVID- Yes 19 infection completed? Marital Status Lives With spouse,family Prior Living Arrangements House Number of Floors (Floors) Two Floors Number of Stairs To Enter/Railing? Pt able to stay on main level; 4 stairs into hours Support System Family,Spouse Does the Patient Have Assistance After Yes Surgery Patient Discharge Plan Description Return Home Feels Safe in Current Environment Yes Been Physically Hurt or Threatened By a No Person in Current Environment Do you have thoughts of harming yourself None or others? Are you currently considering suicide? No Do you have a plan to hurt yourself or No Plan others? Do You Have Any Spiritual Beliefs That No May Affect Your HC Choices? Do You Have Any Cultural Practices That No May Affect Your HC Choices? Comment LDS Who Can We Speak to About Patient's Care Family & Friends Identifying Code for Release of Patient Declined Information Health Care Proxy/Next of Kin Spouse Ed Yessica/Son Anthony Juan Health Care Proxy Phone Number [phone]/ Son - Emergency Contact Name Curtis () or Anthony ( son) Emergency Contact Phone Number Curtis: [phone], Anthony: [phone] Advance Directives? Yes Advance Directives on File Yes: per patient Power of Rooms Director Yes Power of Rooms Director Name Curtis (), Nicky ( daughter) Power of Rooms Director Phone Number Curtis: [phone], [phone] Nicky: [phone] PAC Instructions Assistance for 24 hours post- op,Do not shave/clip surgical site,Durable medical equipment ,Medications to take/avoid, Nasal antibiotic,No ETOH/ petroleum product on skin DOS, NPO,Post-op transportation,Pre -op antibiotic,Pre-surgical wash,Sensory aids,Sturdy shoes /comfortable clothes,Do not bring valuables and remove jewelry
--- NOTE | 2020-09-12 09:25 | CM.DPNOTE ---
DPC ASSESSMENT: Patient is a pleasant 74 year-old female who was at the hospital for OPB post a left total knee replacement. Primary payer is [facility] and self-pay. PCP is Say Schmidt. MANUFACTURING RECRUITER and MANUFACTURING RECRUITER Student met with patient as she was sitting in chair alert and oriented. Patient reported she is independent with ADL's and drives a care. She lives in a supportive environment with and spouse. Patient reported she has an outpatient physical therapy at [facility] scheduled for 09-18-20. Patient has a walker to utilize during her recovery. PLAN: Anticipate D/C to home Sudheer Tejada MANUFACTURING RECRUITER Student Deepti Muhammad MANUFACTURING RECRUITER Discharge Planning/Care Management CM Discharge Assessment Start: 09/12/20 09:21 Freq: Status: Active Protocol: Document 09/12/20 09:22 AL (Rec: 09/12/20 09:24 AL [id number]) Discharge Planning Assessment Assigned Print Support Specialist KIM Strickland Student Contact Information Anthony Juan Advance Directives? Yes Advance Directives on File Yes: per patient History Provided By Patient,Medical Record Has Patient been admitted in last 30 No days? Prior Living Arrangements House Household Members spouse,family,children Type of transporation used prior to Drives own vehicle admit Independent with ADL's Yes Is patient alert and oriented? Yes Caregiver for Another No Patient/Family Preference OP PT Therapy Comment Patient has first appointment set-up for Friday at [facility] Barriers to Discharge No Discharge Plan Home Transportation Arrangement Son Anthony Juan will provide transportation Referrals Initiated None needed Whiteboard Updated in Patient Room with Yes name and ext. # of Print Support Specialist Review Status In Process Pre-Anesthesia Assessment Start: 09/04/20 09:26 Freq: Status: Active Protocol: Document 09/04/20 09:27 VLJ (Rec: 09/04/20 09:44 [facility] [id number]) Pre-Anesthesia Assessment Preferred Name Grace Patient Information Reviewed Via Chart Review,Phone Assessment Assessment Completed With Patient H&P Completed Within 30 Days Yes Diagnostic Results BMP/CMP,CBC,Other Comment A1c, Covid Primary Care Provider Say Schmidt Seen Specialist in Last 12 Months Yes Specialist Seen Orthopedist Preferred Language Beninese Utilities Manager Required No Height 154.94 cm Hearing Ability Normal Visual Impairment Partially Limited Visual Assist Glasses Dentition Type Teeth, Natural Present Barriers to Learning Visual Other Aids No Hx Anesthesia Reactions Yes: PONV w/last colonoscopy/ egd Hx Family Anesthesia Reaction No Hx Malignant Hyperthermia No Hx Blood Transfusions Yes: hemorrhage w/3rd vaginal delivery Hx Blood Transfusion Reaction No Anesthesia Review Requested No Community Center Director No alcohol intake never Smoking Status Never smoker Substance Use Type does not use Pain Present Pain Reported Comment left knee, hips, low back Musculoskeletal Symptoms Abnormal Gait,Back Pain, Difficulty Walking,Joint Pain, Joint Stiffness,Joint Swelling ,Limited Range of Motion, Muscle Cramps History of Falling (Recent or History of No ) Comment tripped on steps 2 years ago Patient is completely paralyzed or No completely immobile Ambulatory Aid None/bed rest/nurse assist Gait/Transferring Normal/bedrest/immobile Mental Status Oriented to own ability Is patient on oxygen? No Does patient have ZHOU/SOB No Hx Sleep Apnea No CPAP/BIPAP use not prescribed Currently Taking a Beta Manny No Can You Climb a Flight of Stairs Without Yes SOB Hx Chest Pain No Hx SOB No Hx Syncope or Dizziness Yes: Occasional dizziness Anti-Coagulant Therapy Yes: Aspirin 81 mg Has a Director Of Managed Care No Cardiac Testing No Hx Pacemaker/ICD No Cardiac Clearance Received Not Applicable Diet Type At Home Regular dysphagia Yes: Had manometry, diff w/ vitamins Gastrointestinal Symptoms Reflux Comment IBS well managed Urinary Catheter Present No Hx Urinary Self Catheterization No Diabetes No: Impaired fasting glucose HgbA1C 6.6 Date 08/22/20 Patient No Lactating No Hx Drug Resistant Organism No Presence of External or Internal Medical Yes: Bilat eye lens, R TSA Devices Have you had any close contact with No someone diagnosed with COVID-19? Are you experiencing any of these No symptoms symptoms? Evaluation/Screening for possible COVID- Yes 19 infection completed? Marital Status Lives With spouse,family Prior Living Arrangements House Number of Floors (Floors) Two Floors Number of Stairs To Enter/Railing? Pt able to stay on main level; 4 stairs into hours Support System Family,Spouse Does the Patient Have Assistance After Yes Surgery Patient Discharge Plan Description Return Home Feels Safe in Current Environment Yes Been Physically Hurt or Threatened By a No Person in Current Environment Do you have thoughts of harming yourself None or others? Are you currently considering suicide? No Do you have a plan to hurt yourself or No Plan others? Do You Have Any Spiritual Beliefs That No May Affect Your HC Choices? Do You Have Any Cultural Practices That No May Affect Your HC Choices? Comment LDS Who Can We Speak to About Patient's Care Family & Friends Identifying Code for Release of Patient Declined Information Health Care Proxy/Next of Kin Spouse Ed Yessica/Son Anthony Juan Health Care Proxy Phone Number [phone]/ Son - Emergency Contact Name Curtis () or Anthony ( son) Emergency Contact Phone Number Curtis: [phone], Anthony: [phone] Advance Directives? Yes Advance Directives on File Yes: per patient Power of Body Line Finisher Yes Power of Body Line Finisher Name Curtis (), Nicky ( daughter) Power of Body Line Finisher Phone Number Curtis: [phone], [phone] Nicky: [phone] PAC Instructions Assistance for 24 hours post- op,Do not shave/clip surgical site,Durable medical equipment ,Medications to take/avoid, Nasal antibiotic,No ETOH/ petroleum product on skin DOS, NPO,Post-op transportation,Pre -op antibiotic,Pre-surgical wash,Sensory aids,Sturdy shoes /comfortable clothes,Do not bring valuables and remove jewelry
[2020-09-12] MEDS: ASPIRIN EC 81 MG TABLET PO (09:48)
[2020-09-12] MEDS: DOCUSATE 100 MG CAPSULE PO (09:48)
[2020-09-12] MEDS: ACETAMINOPHEN 325 MG TABLET 650 MG PO (09:49)
--- NOTE | 2020-09-12 10:09 | PT.IPTN ---
Current Diagnoses Unilateral primary osteoarthritis, left knee (09/11/20) Surgery Performed Operation Date: 09/11/20 10:45 Actual Procedures p Total Knee Arthroplasty(Left) - Andrew Snider MD Physical Therapy Treatment Note M2 PT-IP Current Condition Start: 09/11/20 15:16 Freq: NEEDED Status: Active Protocol: Document 09/11/20 16:01 AW (Rec: 09/11/20 16:21 AW [id number]) Physical Therapy Current Condition Current Condition Evaluation Date 09/11/20 Treatment Diagnosis L TKA; difficulty in walking Onset Date 09/11/20 Weight Bearing Status Weight Bearing Status Weight Bear as Tolerated Allowed Weight Bearing Amount (enter % WBAT LLE or #) (%) M3 PT-IP Subjective Start: 09/11/20 15:16 Freq: NEEDED Status: Active Protocol: Document 09/12/20 10:09 AB (Rec: 09/12/20 11:27 AB [id number]) Subjective Physical Therapy Visit Type Type Treatment Note Visit Start Time 10:09 Visit Stop Time 10:52 Total Visit Minutes 43 Number of ATM TECHNICIAN Visits 0 Physical Therapy Visit Comments Patient Comments pt is agreeable to do PT Therapy Pain Assessment Pain When Pain Assessed At Rest Location Left Knee Intensity 5 Scale Used Numeric (0 - 10) Pain Management Techniques Apply Cold,Distraction, Elevation,Modification of Treatment,Re-positioning, Timing of Activity with Medications M4 PT-IP Mobility and Gait Start: 09/11/20 15:16 Freq: NEEDED Status: Active Protocol: Document 09/12/20 10:09 AB (Rec: 09/12/20 11:27 AB [id number]) PT-Bed Mobility Assessment Supine to Sit Supine to Sit Standby Assistance Sit to Supine Sit to Supine Standby Assistance PT-Transfer Assessment Sit to and From Stand Sit to and from Stand Standby Assistance,Contact Guard Assistance Equipment Transfer Assistive Device Gait Belt Orthotic/Prosthetic Devices or Brace: No Transfers Transfer Destination Bed,Chair Transfer Technique Stand Step Pivot Transfer Ability Level of Assist Standby Assistance,1 Person Assistance,Use of Upper Extremities Comments Mobility Comments completed sit to stand from chair SBA to CGA and completed step transfer to bed SBA to CGA using FWW. completed supine<>sit SBA and initial cues. completed ambulation ~ [address] in [address] hallway using FWW SBA to CGA. educated on stair climbing. pt completed up/down steps using L rail CGA and cues on first set but able to complete without cues on 2nd set. assisted pt back to her room. ambulated from w/c to chair SBA using FWW. positioned on chair. call light and table placed within reach. ice pack provided. Gait Assessment Gait Gait Assistance Required: Standby Assistance,Contact Guard Assist,1 Person Assist Distance (Feet) 50 Able to Maintain Weight Bearing Status Yes During Gait Assistive Devices Assistive Device Gait Belt,Front Wheeled Walker Orthotic/Prosthetic Devices or Brace: No Gait Deviations General Gait Pattern Antalgic,Decreased Stride Length,Decreased Feet Clearance Factors Limiting Gait Function Factors Limiting Gait Function Decreased Activity Tolerance, Decreased Strength,Limited Range of Motion,Pain,Poor Balance,Poor Safety Awareness Stair Climbing Assessment Evaluation Level of Assist On Stairs Contact Guard Assistance,1 Person Assistance Devices Stair Climbing Assistive Devices Left Railing Technique/Endurance Stair Climbing Direction Ascend and Descend Stair Climbing Technique Step to Step Number of Steps Climbed 3 Stair Climbing Set # Repetitions (reps) 2 M5 PT-IP Objective Assessments Start: 09/11/20 15:16 Freq: NEEDED Status: Active Protocol: Document 09/11/20 16:01 AW (Rec: 09/11/20 16:21 AW [id number]) Orientation Orientation/Cognition Level of Alertness Alert Orientation Name,Day of Week,Place, Situation Language Function Ability No Deficits Noted Safety Awareness Understands Safety Issues Memory Description No Deficits Noted Gross Range of Motion Upper Extremity ROM Assessment Right Impaired Impairments Prior R TSA. Flexion limited to ~120 degrees but functional and without pain. Lower Extremity ROM Assessment Left Impaired Strength Lower Extremity Strength Assessment Left Impaired Hip 4-/5 Knee 3/5 Ankle 4/5 Comments Strength Comments RLE grossly 4+/5 Sensation Assessment Sensation Gross Sensation Right LE Impaired,Left LE Impaired Sensation Description Numbness Comments Sensation Comments Numbness reported at buttocks and posterior thighs M6 PT-IP Treatment Start: 09/11/20 15:16 Freq: NEEDED Status: Active Protocol: Document 09/12/20 10:09 AB (Rec: 09/12/20 11:27 AB [id number]) Physical Therapy Treatment Exercises Exercises Heel Slides Education Education Provided Safety M7 PT-IP Assessment and Plan Start: 09/11/20 15:16 Freq: NEEDED Status: Active Protocol: Document 09/12/20 10:09 AB (Rec: 09/12/20 11:27 AB [id number]) PT Summary Assessment and Plan Potential Rehabilitation Potential Good Summary Impairments Pain,ROM,Strength,Balance, Coordination,Sensation,Tone, Cognition,Bed Mobility, Transfers,Gait,Activity Tolerance Progress Towards Goals Progressing Toward Goals Assessment Summary pt is progressing wel with mobility and requires SBA to CGA. pt will have her family to assist her at home and plans to go home later today. pt is set up for outpt PT. pt may go home when medically stable. Goals Bed Mobility Goal Independent Transfer Goal Standby Assistance,Front Wheeled Walker Gait Goal Standby Assistance,Front Wheel Walker Gait Distance 120 Other Goals - up/down 4 steps with unilateral rail SBA Frequency of Treatment Frequency Of Treatment Twice a Day Treatment Plan Physical Therapy Treatment Plan Bed Mobility Training,Transfer Training,Gait Training, Therapeutic Exercise,Balance Retraining,Post Op Education, Discharge Planning,Hot or Cold Pack,Neuromuscular Re-ed Recommendations To Nursing Amount of Assist Needed 1 Person Assist Discharge Recommendations PT Discharge Recommendations Home with Assistance, Outpatient PT Transportation Needs at Discharge Private Vehicle
--- NOTE | 2020-09-12 13:14 | PC.NURSE ---
Discharge: Feels ready to d/c home. Has been able to tolerate diet w/out problems. Vds w/out diff. Po pain meds are effective. Seen by health care provider and received Dr. Castanon instructions. Leg wrap was tight and removed for a couple of hours and then reapplied per MD request. Pt shown how to do same in case she should have more swelling when she goes home and needs to loosen master wrap and reapply. Seen by PT and has been d/c from their stand point. Reviewed d/c packet, questions answered. RX has been esent. Pt denies any concerns. D/c home via auto w/son.
== END 2020-09-12 12:10 | disposition home or self-care (01) ==
LOC: OR 08:44 → AC 08:44
PROVIDERS: PCP Family Medicine; Referring Provider Orthopaedic Surgery; Visit Provider Orthopaedic Surgery
PROC: 0SRD0JZ Replacement of Left Knee Joint with Synthetic Substitute, Open Approach (ICD-10-PCS; CPT 27447; principal; 2020-09-11 10:45)
DX: M17.12 Unilateral primary osteoarthritis, left knee (principal); I10 Essential (primary) hypertension; M81.0 Age-related osteoporosis without current pathological fracture
CPT/HCPCS: 27447; 36415; 73560; 85014; 85018; 97116; 97161; 97530; C1776; C9290; J0690; J1100; J2250; J2270; J2405; J2704; J3010

== ENCOUNTER 2020-09-23 10:46 | Emergency (ER) | payer OTHER, SELFPAY ==
[2020-09-11 13:26] VITALS: BMI 28.7
[2020-09-23 10:58] VITALS: BP 158/70; PULSE 91; RESP 14; TEMP 37.1; O2SAT 97; BMI 29.2
[2020-09-23 11:01] VITALS: BP 158/70; PULSE 89; O2SAT 96
[2020-09-23 11:46] LABS: Bacteria Urine None Seen
[2020-09-23 11:48] LABS: Appearance Urine UA CLEAR; Bilirubin Urine UA 2+ (NEGATIVE); Color Urine UA YELLOW; Glucose Urine UA TRACE g/dL (Negative); Ketones Urine UA TRACE (NEGATIVE); Leukocyte Esterase Urine UA TRACE (NEGATIVE); Nitrite Urine UA NEGATIVE (Negative); Occult Blood Urine UA TRACE-INTACT (Negative); Protein Urine UA 2+ (Negative); Specific Gravity Urine UA 1.025 (1.000-1.035)
[2020-09-23 11:56] LABS: Amorphous Sediment Urine 2+; Culture Indicated Urine Cult Not Indicated; Mucus Urine 2+ (Negative); RBC Urine 1-5/HPF (0-5/HPF); Renal Epithelial Cells Urine 1-5/HPF (0-1/HPF); Squamous Epithelial Cell Urine 5-10 /HPF (0-5/HPF); WBC Urine 5-10/HPF (0-5/HPF)
[2020-09-23 12:01] LABS: Add Manual Diff / Slide Review NO; Basophils Absolute Auto 200 /uL (0-100); Eosinophils Absolute Auto 100 /uL (0-450); Eosinophils Percent Auto 0.5 % (2-4); Hematocrit 33.9 % (36-46); Hemoglobin 11.4 g/dL (12.0-16.0); Lymphocytes Absolute Auto 1800 /uL (1100-4500); Lymphocytes Percent Auto 10.8 % (25-40); Mean Corpuscular HGB Conc 33.8 % (30-36); Mean Corpuscular Hemoglobin 31.2 PG (26-34); Mean Corpuscular Volume 92.3 fL (80-100); Monocytes Absolute Auto 1200 /uL (0-900); Monocytes Percent Auto 7.3 % (3-14); Neutrophils Absolute Auto 13400 /uL (1500-7000); Neutrophils Percent Auto 80.4 % (50-75); Platelet Count 606 X10^3/uL (150-400); Red Blood Cell Count 3.67 X10^6/uL (4.0-5.2); Red Cell Distribution Width 13.7 % (11.6-14.8); White Blood Cell Count 16.7 X10^3/uL (4.5-11.0)
[2020-09-23 12:12] LABS: Alanine Aminotransferase 30 IU/L (<35); Albumin 4.1 g/dL (3.5-5.0); Albumin Globulin Ratio 1.3 (1.0-2.8); Alkaline Phosphatase 73 U/L (38-126); Aspartate Aminotransferase 34 IU/L (14-36); BUN Creatinine Ratio 33.9 (6-22); Bilirubin Total 0.6 mg/dL (0.2-1.3); Blood Urea Nitrogen 19 mg/dL (7-17); Calcium 9.3 mg/dL (8.4-10.2); Carbon Dioxide 29 mmol/L (22-32); Chloride 103 mmol/L (98-107); Estimated Glomerular Filt Rate > 60.0 mL/min (>60); Globulin 3.1 g/dL (1.7-4.1); Glucose 172 mg/dL (80-110); HEMOLYSIS < 15 (0-50); Magnesium 1.9 mg/dL (1.6-2.3); Potassium 3.3 mmol/L (3.4-5.1); Sodium 137 mmol/L (137-145); Total Protein 7.2 g/dL (6.3-8.2)
[2020-09-23 12:17] LABS: Ictotest Urine Negative (Negative)
--- NOTE | 2020-09-23 12:30 | ED_ITS ---
HPI - Recheck/Abnormal Lab/Rx <Jenn Maddoxmer, [employer]-BC - Last Filed: 09/23/20 15:18> General Chief Complaint: Recheck/Abnormal Lab/Rx Stated Complaint: post-op, diarrhea, sent by [facility] for inf/anemia Time Seen by Provider: 09/23/20 11:22 Source: patient Mode of arrival: Ambulatory Limitations: no limitations History of Present Illness HPI narrative: The patient is a 74-year-old female nonsmoker with history of total knee replacement by Dr. Snider on the of this month who presents with a chief complaint of being told to come here by a walk-in clinic from [place]. She states that she went there yesterday for diarrhea. She states she has had diarrhea ongoing since 2 weeks before her surgery. She has history of irritable bowel syndrome, so she states that is not abnormal for her. She denies any fevers nausea vomiting or diarrhea. She states that she wanted to go with primary care provider, who was unable to see her as they are out of clinic that day so she was referred to a walk-in clinic. She states that the walk-in clinic did labs, called her this morning and told her that she was anemic, had signs of infection and very low potassium so she should go to the emergency department. Overall the patient states she feels well, that she is healing well from her knee surgery but slightly frustrated with a long course. She denies any fevers, denies any abdominal pain, states that her diarrhea comes and goes every few days. Related Data Home Medications Medication Instructions Recorded Confirmed amlodipine 10 mg PO QPM #0 10/15/17 09/11/20 lisinopril 20 mg PO QPM #0 10/15/17 09/11/20 nortriptyline 25 mg PO BEDTIME 04/14/19 09/11/20 B-complex with vitamin C [Super 1 cap PO DAILY 04/28/19 09/11/20 B/C] Multi-Day with Iron 1 tab PO DAILY 04/28/19 09/11/20 Vitamin C 1,000 mg PO DAILY 04/28/19 09/11/20 cholecalciferol (vitamin D3) 4,000 unit PO BID 04/28/19 09/11/20 [Vitamin D3] cranberry 400 mg PO DAILY 04/28/19 09/11/20 omega 7-zjq-rib-fish oil [Fish Oil] 1 cap PO DAILY 04/28/19 09/11/20 turmeric 1,000 mg PO DAILY 04/28/19 09/11/20 zinc 50 mg PO DAILY 04/28/19 09/11/20 Glucosamine Complex-MSM 1 cap PO DAILY 09/04/20 09/11/20 calcium 600 mg PO DAILY 09/04/20 09/11/20 coQ10 (ubiquinol) 300 mg PO DAILY 09/04/20 09/11/20 diclofenac sodium [Voltaren] 1 g TOPICAL BID 09/04/20 09/11/20 glucosamine sulfate 1,500 mg PO DAILY 09/04/20 09/11/20 melatonin 10 mg PO BEDTIME 09/04/20 09/11/20 omeprazole 20 mg PO DAILY 09/04/20 09/11/20 strontium [id number] 1 tab PO QPM 09/04/20 09/11/20 Previous Rx's Medication Instructions Recorded acetaminophen 650 mg PO TID 30 Days #180 tab 09/12/20 aspirin 81 mg PO BID 42 Days #84 tab 09/12/20 oxycodone 5 mg PO Q4H PRN #40 tab 09/12/20 Allergies Allergy/AdvReac Type Severity Reaction Status Date / Time Sulfa (Sulfonamide Allergy Intermediate RASH Verified 09/23/20 11:02 Antibiotics) [SULFA (SULFONAMIDE ANTIBIOTICS)] NSAIDS (Non-Steroidal AdvReac Intermediate History of Verified 09/23/20 11:02 Anti-Inflamma ulcer, difficulty swallowing Review of Systems <SADIE FooteP-BC - Last Filed: 09/23/20 15:18> Review of Systems Narrative: GENERAL: Denies chills, fatigue, malaise, fever, sweats. HEENT: Denies sinus pain, ear pain, sore throat, difficulty swallowing, dizz iness. RESPIRATORY: Denies dyspnea, cough, wheezing, hemoptysis, sputum. CARDIOVASCULAR: Denies chest pain, palpitations, orthopnea, edema, GASTROINTESTINAL: See HPI : Denies dysuria, frequency, incontinence, hematuria, urinary retention. MUSCULOSKELETAL: denies weakness, joint pain, or bony pain SKIN: Denies rash, skin lesions, or other NEUROLOGIC: Denies weakness, headache, numbness, change in speech, confusion, seizures, incoordination. PSYCHIATRIC: No concerning psychosocial issues. 12 point review of systems is negative except for those stated above Patient History <ANGELINA Foote - Last Filed: 09/23/20 15:18> Medical History Arthritis Bronchitis Chronic neck and back pain Easy bruisability GERD (gastroesophageal reflux disease) History of IBS HTN (hypertension) Impaired fasting glucose Kidney stones Osteoporosis Prolapse of bladder Stomach ulcer due to nonsteroidal anti-inflammatory drug (NSAID) Surgical History H/O: hysterectomy History of colonoscopy History of esophagogastroduodenoscopy (EGD) History of total replacement of right shoulder joint Hx of appendectomy Hx of bilateral cataract extraction (~2018) Hx of dilation and curettage Hx of hemorrhoidectomy Hx of tonsillectomy Social History household members: spouse, family and children Smoking Status: Never smoker alcohol intake: never Smoking Status: Never smoker alcohol intake frequency: holidays/special occasions only Substance Use Type: does not use Exam <ANGELINA Foote - Last Filed: 09/23/20 15:18> Narrative Exam Narrative: GENERAL: This is a well-nourished, well-developed patient, in no acute HEAD: Atraumatic. Normocephalic. No temporal or scalp tenderness. EYES: Pupils equal round and reactive. Extraocular motions intact. No scleral icterus. No injection or drainage. ENT: Nose without bleeding, purulent drainage or septal hematoma. Wearing a ma sk Airway patent. NECK: Trachea midline. No JVD or lymphadenopathy. Supple, nontender, no meningeal signs. CARDIOVASCULAR: Regular rate and rhythm RESPIRATORY: Clear to auscultation. Breath sounds equal bilaterally. No wheezes, rales, or rhonchi. GASTROINTESTINAL: Abdomen soft, non-tender, nondistended. No hepato- splenomegaly, or palpable masses. No guarding. Active bowel sounds all 4 quadrants. No pain to palpation noted all 4 quadrants EXTREMITIES: No clubbing, cyanosis, or edema. No joint tenderness, effusion, or edema noted. BACK: Nontender without deformity or crepitance. No flank tenderness. NEURO: AOx3. SKIN: Left knee surgical incision with no extending erythema, well-approximated healing well, no drainage noted Initial Vital Signs Initial Vital Signs: Vital Signs Temperature 98.7 F 09/23/20 10:58 Pulse Rate 91 H 09/23/20 10:58 Respiratory Rate 14 09/23/20 10:58 Blood Pressure 158/70 H 09/23/20 10:58 Pulse Oximetry 97 09/23/20 10:58 <Rebeca Hernandez DO - Last Filed: 09/26/20 07:22> Initial Vital Signs Initial Vital Signs: Vital Signs Temperature 98.7 F 09/23/20 10:58 Pulse Rate 91 H 09/23/20 10:58 Respiratory Rate 14 09/23/20 10:58 Blood Pressure 158/70 H 09/23/20 10:58 Pulse Oximetry 97 09/23/20 10:58 Scores <ANGELINA Foote - Last Filed: 09/23/20 15:18> GCS [place] coma scale eye opening: Spontaneous [place] coma scale verbal response: Orientated [place] coma scale motor response: Obey commands [place] coma scale total score: 15 Course <ANGELINA Foote - Last Filed: 09/23/20 15:18> Orders Ordered: Discontinued Medications Potassium Chloride (Potassium Chloride 20 Meq Tab) 40 meq PO NOW ONE Stop: 09/23/20 13:32 Last Admin: 09/23/20 13:51 Dose: 40 meq Documented by: [email or web address] Vital Signs Vital signs: Vital Signs - 8 hr 09/23/20 10:58 09/23/20 11:01 09/23/20 14:36 Temperature 98.7 F Pulse Rate 91 H 89 77 Respiratory Rate 14 16 Blood Pressure 158/70 H 158/70 H 146/67 H Pulse Oximetry 97 96 98 <DO Bernard Escobar Last Filed: 09/26/20 07:22> Orders Ordered: Discontinued Medications Potassium Chloride (Potassium Chloride 20 Meq Tab) 40 meq PO NOW ONE Stop: 09/23/20 13:32 Last Admin: 09/23/20 13:51 Dose: 40 meq Documented by: [email or web address] Vital Signs Vital signs: Vital Signs - 8 hr 09/23/20 10:58 09/23/20 11:01 09/23/20 14:36 Temperature 98.7 F Pulse Rate 91 H 89 77 Respiratory Rate 14 16 Blood Pressure 158/70 H 158/70 H 146/67 H Pulse Oximetry 97 96 98 [facility] - Recheck/Abnormal Lab/Rx <SADIE FooteP- - Last Filed: 09/23/20 15:18> Lab Data Attestation: I reviewed the patient's lab results. Result diagrams: 09/23/20 11:52 09/23/20 11:52 Labs: Lab Results 09/23/20 09/23/20 09/23/20 Range/Units 11:30 11:52 11:52 WBC 16.7 H (4.5-11.0) X10^3/uL RBC 3.67 L (4.0-5.2) X10^6/uL Hgb 11.4 L (12.0-16.0) g/dL Hct 33.9 L (36-46) % MCV 92.3 (80-100) fL MCH 31.2 (26-34) PG MCHC 33.8 (30-36) % RDW 13.7 (11.6-14.8) % Plt Count 606 H (150-400) X10^3/uL Neut % (Auto) 80.4 H (50-75) % Lymph % (Auto) 10.8 L (25-40) % [place] % (Auto) 7.3 (3-14) % Eos % (Auto) 0.5 L (2-4) % Baso % (Auto) 1.0 (0-2) % Neut # (Auto) 26863 H (7918-1115) /uL Lymph # (Auto) 1800 (6198-1293) /uL [place] # (Auto) 1200 H (0-900) /uL Eos # (Auto) 100 (0-450) /uL Baso # (Auto) 200 H (0-100) /uL Sodium 137 (137-145) mmol/L Potassium 3.3 L (3.4-5.1) mmol/L Chloride 103 (98-107) mmol/L Carbon Dioxide 29 (22-32) mmol/L BUN 19 H (7-17) mg/dL Creatinine 0.56 (0.52-1.04) mg/dL Estimated GFR > 60.0 (>60) mL/min BUN/Creatinine Ratio 33.9 H (6-22) Glucose 172 H (80-110) mg/dL Calcium 9.3 (8.4-10.2) mg/dL Magnesium 1.9 (1.6-2.3) mg/dL Total Bilirubin 0.6 (0.2-1.3) mg/dL AST 34 (14-36) IU/L ALT 30 (<35) IU/L Alkaline Phosphatase 73 (38-126) U/L Total Protein 7.2 (6.3-8.2) g/dL Albumin 4.1 (3.5-5.0) g/dL Globulin 3.1 (1.7-4.1) g/dL Albumin/Globulin Ratio 1.3 (1.0-2.8) Urine Color Yellow Urine Appearance Clear Urine pH 5.0 (4.5-8.0) Ur Specific [place] 1.025 (1.000-1.035) Urine Protein 2+ H (Negative) Urine Glucose (UA) Trace H (Negative) g/dL Urine Ketones Trace H (NEGATIVE) Urine Occult Blood Trace-intact (Negative) Urine Nitrate Negative (Negative) Urine Bilirubin 2+ H (NEGATIVE) Ur Bilirubin Confirm Negative (Negative) Urine Urobilinogen 1.0 (0.2) E.U./dL Ur Leukocyte Esterase Trace H (NEGATIVE) Urine RBC 1-5/hpf (0-5/HPF) Urine WBC 5-10/hpf H (0-5/HPF) Ur Squamous Epith Cells 5-10 /hpf H (0-5/HPF) Ur Renal Epithelial Cell 1-5/hpf H (0-1/HPF) Amorphous Sediment 2+ Urine Bacteria None seen (None) Urine Mucus 2+ H (Negative) Ur Culture Indicated? Cult not indicated Imaging Data Chest x-ray: Radiologist's Impression: [address] [place] [id number] ReportSi gned Patient: Grace Juan EMR#: [id number]: 4Acct:[id number]/Sex: 74 / FDate of Service: 09/23/20Loc: EDAccession Number: [id number] Procedure: XR chest 2V Ordering Provider: Jenn Ellison [employer]- PROCEDURE: XR CHEST 2V INDICATIONS: post op malaise TECHNIQUE: 2 views of the chest were acquired. COMPARISON: None. FINDINGS: Surgical changes and devices: Right shoulder arthroplasty hardware is seen. Lungs and pleura: Lungs are clear. No pleural effusions or pneumothorax. Mediastinum: The cardiac contours are within normal limits. The aorta demonstrates calcification and tortuosity. Bones and chest wall: Age-appropriate bony degenerative changes are seen. No suspicious bony abnormalities. Soft tissues appear unremarkable. IMPRESSION: Unremarkable chest plain films, without infiltrates. Dictated by: Dav Torres M.D. on 09/23/2020 at 12:08 Approved by: Dav Torres M.D. on 09/23/2020 at 12:12 [facility] Narrative Medical decision making narrative: The patient is a 74-year-old female who presents with a chief complaint of needing labs rechecked from a walk-in clinic yesterday. Overall she appears well and nontoxic, no fevers, no signs of systemic illness. She does have leukocytosis to 16, though she had notes that she has IBS and has been having diarrhea for several weeks now. However she was unable to provide a stool sample during her emergency department stay. She is not grossly anemic, her potassium is noted to be slightly low when she was replaced with 40 mEq p.o., which she was able to tolerate. Discussed patient labs with Dr Hernandez, as well as course and plan. I did encourage her to follow up with primary care provider in the next few days. X-ray is no concerning findings. Knee exam is overall well, no signs of infection or drainage. Urine has no signs of infection. Patient has no questions or concerns upon discharge states understanding of return precautions as well as follow-up care. <Rebeca Hernandez, DO - Last Filed: 09/26/20 07:22> Lab Data Labs: Lab Results 09/23/20 09/23/20 09/23/20 Range/Units 11:30 11:52 11:52 WBC 16.7 H (4.5-11.0) X10^3/uL RBC 3.67 L (4.0-5.2) X10^6/uL Hgb 11.4 L (12.0-16.0) g/dL Hct 33.9 L (36-46) % MCV 92.3 (80-100) fL MCH 31.2 (26-34) PG MCHC 33.8 (30-36) % RDW 13.7 (11.6-14.8) % Plt Count 606 H (150-400) X10^3/uL Neut % (Auto) 80.4 H (50-75) % Lymph % (Auto) 10.8 L (25-40) % [place] % (Auto) 7.3 (3-14) % Eos % (Auto) 0.5 L (2-4) % Baso % (Auto) 1.0 (0-2) % Neut # (Auto) 09195 H (5163-3260) /uL Lymph # (Auto) 1800 (1984-2603) /uL [place] # (Auto) 1200 H (0-900) /uL Eos # (Auto) 100 (0-450) /uL Baso # (Auto) 200 H (0-100) /uL Sodium 137 (137-145) mmol/L Potassium 3.3 L (3.4-5.1) mmol/L Chloride 103 (98-107) mmol/L Carbon Dioxide 29 (22-32) mmol/L BUN 19 H (7-17) mg/dL Creatinine 0.56 (0.52-1.04) mg/dL Estimated GFR > 60.0 (>60) mL/min BUN/Creatinine Ratio 33.9 H (6-22) Glucose 172 H (80-110) mg/dL Calcium 9.3 (8.4-10.2) mg/dL Magnesium 1.9 (1.6-2.3) mg/dL Total Bilirubin 0.6 (0.2-1.3) mg/dL AST 34 (14-36) IU/L ALT 30 (<35) IU/L Alkaline Phosphatase 73 (38-126) U/L Total Protein 7.2 (6.3-8.2) g/dL Albumin 4.1 (3.5-5.0) g/dL Globulin 3.1 (1.7-4.1) g/dL Albumin/Globulin Ratio 1.3 (1.0-2.8) Urine Color Yellow Urine Appearance Clear Urine pH 5.0 (4.5-8.0) Ur Specific [place] 1.025 (1.000-1.035) Urine Protein 2+ H (Negative) Urine Glucose (UA) Trace H (Negative) g/dL Urine Ketones Trace H (NEGATIVE) Urine Occult Blood Trace-intact (Negative) Urine Nitrate Negative (Negative) Urine Bilirubin 2+ H (NEGATIVE) Ur Bilirubin Confirm Negative (Negative) Urine Urobilinogen 1.0 (0.2) E.U./dL Ur Leukocyte Esterase Trace H (NEGATIVE) Urine RBC 1-5/hpf (0-5/HPF) Urine WBC 5-10/hpf H (0-5/HPF) Ur Squamous Epith Cells 5-10 /hpf H (0-5/HPF) Ur Renal Epithelial Cell 1-5/hpf H (0-1/HPF) Amorphous Sediment 2+ Urine Bacteria None seen (None) Urine Mucus 2+ H (Negative) Ur Culture Indicated? Cult not indicated Discharge Plan Departure Patient Disposition: Home Clinical Impression: Encounter for laboratory test Diarrhea Qualifiers: Diarrhea type: unspecified type Qualified Code(s): R19.7 - Diarrhea, unspecified Leukocytosis Qualifiers: Leukocytosis type: unspecified Qualified Code(s): D72.829 - Elevated white blood cell count, unspecified Instructions: Diarrhea (Alternative Therapy), DI for Diarrhea and Traveler's Diarrhea -- Adult, DI for Leukocytosis Activity Restrictions/Additional Instructions: Thank you for trusting us with your care today. As discussed, your potassium was on the lower end of normal. We have given you a dose to get you back up in range. Your chest x-ray is no acute findings, your lab work was overall reassuring other than elevated white blood cell count, which could be related to your diarrhea Please follow-up with primary care provider the next few days. Please call their office on Friday. As discussed please come back to emergency department for any acute concerns such as abdominal pain with fever, inability keep down fluids etcetera Prescriptions: No Action amlodipine 10 MG tablet 10 mg PO QPM Qty: 0 RF: 0 lisinopril 20 MG tablet 20 mg PO QPM Qty: 0 RF: 0 nortriptyline 25 mg Capsule 25 mg PO BEDTIME RF: 0 Multi-Day with Iron 18-400 mg-mcg Tablet 1 tab PO DAILY RF: 0 Vitamin C 1,000 mg Tablet Extended Release 1,000 mg PO DAILY RF: 0 cranberry 400 mg Capsule 400 mg PO DAILY RF: 0 zinc 50 mg Tablet 50 mg PO DAILY RF: 0 B-complex with vitamin C [Super B/C] Capsule 1 cap PO DAILY RF: 0 cholecalciferol (vitamin D3) [Vitamin D3] 2,000 unit Capsule 4,000 unit PO BID RF: 0 omega 7-mbc-oto-fish oil [Fish Oil] 1,000 mg (120 mg-180 mg) Capsule 1 cap PO DAILY RF: 0 turmeric 400 mg Capsule 1,000 mg PO DAILY RF: 0 diclofenac sodium [Voltaren] 1 % Gel 1 g TOPICAL BID RF: 0 calcium 600 mg Capsule 600 mg PO DAILY RF: 0 glucosamine sulfate 750 mg Tablet 1,500 mg PO DAILY RF: 0 Glucosamine Complex-MSM Capsule 1 cap PO DAILY RF: 0 coQ10 (ubiquinol) 100 mg Capsule 300 mg PO DAILY RF: 0 strontium [id number]-FA 680-30 mg Tablet 1 tab PO QPM RF: 0 omeprazole 20 mg Tablet,Delayed Release (Dr/Ec) 20 mg PO DAILY RF: 0 melatonin 10 mg Tablet 10 mg PO BEDTIME RF: 0 acetaminophen 325 mg Tablet 650 mg PO TID 30 Days Qty: 180 RF: 0 aspirin 81 mg Tablet,Delayed Release (Dr/Ec) 81 mg PO BID 42 Days Qty: 84 RF: 0 oxycodone 5 mg Tablet 5 mg PO Q4H PRN (Reason: Pain, Moderate (4-6)) Qty: 40 RF: 0 Referrals: Say Schmidt DO [Primary Care Provider] - <Rebeca Hernandez DO - Last Filed: 09/26/20 07:22> Cosign ED Attending Cosfideature Attestation: I was immediately available in the department for consultation. Documentation has been reviewed. I agree with assessment and plan.
--- NOTE | 2020-09-23 12:39 | DI.RAD.S_ITS ---
PROCEDURE: XR CHEST 2V INDICATIONS: post op malaise TECHNIQUE: 2 views of the chest were acquired. COMPARISON: None. FINDINGS: Surgical changes and devices: Right shoulder arthroplasty hardware is seen. Lungs and pleura: Lungs are clear. No pleural effusions or pneumothorax. Mediastinum: The cardiac contours are within normal limits. The aorta demonstrates calcification and tortuosity. Bones and chest wall: Age-appropriate bony degenerative changes are seen. No suspicious bony abnormalities. Soft tissues appear unremarkable. IMPRESSION: Unremarkable chest plain films, without infiltrates. Dictated by: Dav Torres M.D. on 09/23/2020 at 12:08 Approved by: Dav Torres M.D. on 09/23/2020 at 12:12
[2020-09-23] MEDS: POTASSIUM CHLORIDE 20 MEQ TAB 40 MEQ PO (13:51)
[2020-09-23 14:36] VITALS: BP 146/67; PULSE 77; RESP 16; O2SAT 98
== END 2020-09-23 15:01 | disposition home or self-care (01) ==
PROVIDERS: Emergency Provider Nurse Practitioner Family; PCP Family Medicine
DX: R19.7 Diarrhea, unspecified (principal); D72.829 Elevated white blood cell count, unspecified; Z96.659 Presence of unspecified artificial knee joint
CPT/HCPCS: 71046; 80053; 81001; 83735; 85025; 99283; 99284

== ENCOUNTER → 2020-12-22 14:11 | Outpatient (CLI) | payer MEDICARE, SELFPAY ==
[2020-09-11 13:26] VITALS: BMI 28.7
[2020-12-22] MEDS: COVID-19 VACC, Ad26(JANSSEN)/PF 0.5 ML IM (14:19)
== END ==
PROVIDERS: PCP Family Medicine; Visit Provider Internal Medicine
DX: Z23 Encounter for immunization (principal)
CPT/HCPCS: 0031A; 91303

== ENCOUNTER → 2022-05-04 09:42 | Outpatient (CLI) | payer OTHER, SELFPAY ==
[2020-09-11 13:26] VITALS: BMI 28.7
--- NOTE | 2022-05-04 09:43 | DI.MRI.S_ITS ---
PROCEDURE: MR HIP RT WO CON INDICATIONS: ARTHRITIS RIGHT HIP TECHNIQUE: Noncontrast coronal T1 spin echo and STIR through the bony pelvis. Coronal and axial T2 fast spin echo with fat saturation, sagittal T1 spin echo, and oblique axial T2 fast spin echo with fat saturation through the hip. COMPARISON: None. FINDINGS: Image quality: Excellent. Bones and joints: Moderate right worse than left bilateral hip joint osteoarthritic changes are seen with significant joint space narrowing, subchondral sclerosis and cyst formation and prominent lateral marginal osteophyte formation which can be seen associated with pincer type femoral acetabular impingement. There is no acute fracture or dislocation. No evidence of avascular necrosis of femoral head. No suspicious bony lesions. Visualized lower lumbar spine is normally aligned. Tendons and ligaments: The gluteus medius and minimus tendons appear intact, without associated muscle atrophy. The nearby proximal iliotibial band also appears intact. The iliopsoas tendon appears intact, without adjacent bursal fluid collections or evidence for impingement syndrome. The origin of the hamstring tendon is intact at the ischial tuberosity, as well as the associated sacrotuberous ligament. The straight and reflected heads of the rectus femoris muscle origin appear intact, as well as the conjoint tendon. The ligamentum teres appears intact where visualized. Labrum and cartilage: Loss of articulating cartilages in superior right femoral head is seen. Signal abnormality and contour irregularity involving superior anterior right hip labrum is seen at 12 to 2 o'clock position suggestive of superior anterior labral tear. The alpha angle of the femur is within normal limits at less than 55 degrees. Soft tissues: Visualized muscles demonstrate normal bulk and internal signal. Quadratus femoris muscle demonstrates no internal edema to suggest ischiofemoral impingement. The proximal sciatic neurovascular bundle appears normal adjacent to the hamstring tendons. No free pelvic fluid. Bladder wall thickness is normal. Genitourinary structures and bowel loops appear normal where visualized. IMPRESSION: 1. Asymmetric moderate right hip joint osteoarthritis. No fracture or dislocation. No evidence of avascular necrosis of femoral head. Prominent marginal osteophyte formation in right hip which can be seen associated with pincer type femoral acetabular impingement. 2. No gross muscle or tendon signal abnormality is seen in right hip. 3. Signing is concerning for superior anterior right hip labral tear at 12 to 2 o'clock position. Dictated by: Garret Bobby M.D. on 05/06/2022 at 11:49 Approved by: Garret Bobby M.D. on 05/06/2022 at 11:54
== END ==
PROVIDERS: PCP Family Medicine; Referring Provider Physician Assistant; Visit Provider Physician Assistant
DX: M12.851 Other specific arthropathies, not elsewhere classified, right hip (principal)
CPT/HCPCS: 73721

== ENCOUNTER → 2022-08-06 11:28 | Outpatient (CLI) | payer OTHER, SELFPAY ==
[2020-09-11 13:26] VITALS: BMI 28.7
[2022-08-06 13:32] LABS: Add Manual Diff / Slide Review NO; Basophils Absolute Auto 100 /uL (0-100); Basophils Percent Auto 1.1 % (0-2); Eosinophils Absolute Auto 200 /uL (0-450); Eosinophils Percent Auto 2.1 % (2-4); Hematocrit 40.1 % (36-46); Hemoglobin 13.3 g/dL (12.0-16.0); Lymphocytes Absolute Auto 2200 /uL (1100-4500); Lymphocytes Percent Auto 28.5 % (25-40); Mean Corpuscular HGB Conc 33.2 % (30-36); Mean Corpuscular Hemoglobin 30.3 PG (26-34); Mean Corpuscular Volume 91.4 fL (80-100); Monocytes Absolute Auto 600 /uL (0-900); Monocytes Percent Auto 7.7 % (3-14); Neutrophils Absolute Auto 4600 /uL (1500-7000); Neutrophils Percent Auto 60.6 % (50-75); Platelet Count 376 X10^3/uL (150-400); Red Blood Cell Count 4.39 X10^6/uL (4.0-5.2); Red Cell Distribution Width 13.7 % (11.6-14.8); White Blood Cell Count 7.7 X10^3/uL (4.5-11.0)
[2022-08-06 13:36] LABS: Hemoglobin A1C% w Est Avg Glu 6.2 % (4.0-6.0)
[2022-08-06 13:37] LABS: BUN Creatinine Ratio 22.7 (6-22); Blood Urea Nitrogen 15 mg/dL (7-17); Calcium 9.3 mg/dL (8.4-10.2); Carbon Dioxide 30 mmol/L (22-32); Chloride 99 mmol/L (98-107); Estimated Glomerular Filt Rate > 60 mL/min (>60); Glucose 139 mg/dL (80-110); HEMOLYSIS < 15 (0-50); Potassium 4.4 mmol/L (3.4-5.1); Sodium 139 mmol/L (137-145)
[2022-08-06 13:51] LABS: Appearance Urine UA CLEAR; Bilirubin Urine UA NEGATIVE (NEGATIVE); Color Urine UA YELLOW; Glucose Urine UA NEGATIVE (Negative); Ketones Urine UA NEGATIVE (NEGATIVE); Leukocyte Esterase Urine UA TRACE (NEGATIVE); Nitrite Urine UA NEGATIVE (Negative); Occult Blood Urine UA NEGATIVE (Negative); Protein Urine UA 1+ (Negative); Specific Gravity Urine UA >=1.030 (1.000-1.035); Urobilinogen Urine UA 0.2 E.U./dL (0.2)
[2022-08-06 14:04] LABS: Amorphous Sediment Urine 1+; Bacteria Urine None Seen; Culture Indicated Urine Specimen Cultured; RBC Urine None Seen (0-5/HPF); Squamous Epithelial Cell Urine 0-1 /HPF (0-5/HPF); WBC Urine 1-5/HPF (0-5/HPF)
== END ==
PROVIDERS: PCP Physician Assistant; Referring Provider Orthopaedic Surgery; Visit Provider Orthopaedic Surgery
DX: Z01.818 Encounter for other preprocedural examination (principal); R73.9 Hyperglycemia, unspecified; Z01.812 Encounter for preprocedural laboratory examination; N39.0 Urinary tract infection, site not specified
CPT/HCPCS: 36415; 80048; 81001; 83036; 85025; 87086; 93005; 93010

== ENCOUNTER → 2022-08-20 09:53 | Outpatient (CLI) | payer OTHER, SELFPAY ==
[2020-09-11 13:26] VITALS: BMI 28.7
[2022-08-20 10:43] LABS: COVID19 -Nasal RAPID Negative (Negative)
== END ==
PROVIDERS: PCP Physician Assistant; Referring Provider Orthopaedic Surgery; Visit Provider Orthopaedic Surgery
DX: Z20.822 Contact with and (suspected) exposure to COVID-19 (principal)
CPT/HCPCS: 87635; C9803

== ENCOUNTER 2022-08-22 08:40 | Day surgery (SDC) | payer OTHER, SELFPAY ==
[2020-09-11 13:26] VITALS: BMI 28.7
[2022-08-13 10:25] VITALS: BMI 25.0
[2022-08-22] VITALS (11 sets, daily range): BP systolic 125–154; BP diastolic 53–74; PULSE 62–82; RESP 14–24; TEMP 35.9–36.7; O2SAT 93–99; BMI 25.2
--- NOTE | 2022-08-22 06:00 | DI.RAD.S_ITS ---
PROCEDURE: XR HIP W PEL IF DONE RT 2V INDICATIONS: prosthesis placement TECHNIQUE: Multiple spot fluoroscopic intraoperative images of the right hip and pelvis. COMPARISON: [facility], CR, XR HIP W PEL IF DONE RT 2V, 08/22/2022, 13:06. [facility], CR, XR PELVIS WITH BILATERAL LATERAL HIPS, 05/15/2022, 8:45. FINDINGS: Spot fluoroscopic intraoperative images demonstrate changes from a total hip arthroplasty with hardware components in expected positions. Overlying postsurgical changes are seen in the soft tissues. IMPRESSION: Status post right total hip arthroplasty with hardware components in expected positions. Approved by: Markos Gates M.D. on 08/22/2022 at 14:49
[2022-08-22] MEDS: ACETAMINOPHEN 325 MG TABLET 975 MG PO (09:21)
[2022-08-22] MEDS: PREGABALIN 75 MG CAPSULE PO (09:21)
[2022-08-22] MEDS: CELECOXIB 200 MG CAPSULE PO (09:21)
[2022-08-22] MEDS: LACTATED RINGERS 1,000 ML 42 ML IV (09:23)
[2022-08-22] MEDS: VANCOMYCIN 1,000 MG/200 ML PIGGYBACK 200 MG IV (09:34)
--- NOTE | 2022-08-22 10:01 | PM.PREOP ---
Pre-operative Note COVID-19 COVID-19 status: Negative Interval Note History & Physical reviewed/Exam performed by Physician: Yes Changes to H&P: No
--- NOTE | 2022-08-22 10:16 | P.OP_ITS ---
Operative Date/Time/Diagnoses Date of procedure: 08/22/22 Time of procedure: 11:00 Pre-op diagnosis: right hip OA Post-op diagnosis: same Procedure & Clinicians Procedure: Right total hip arthroplasty anterior approach Same procedure as scheduled: Yes Indications: The patient has had progressively worsening right hip pain with radiographic c hanges consistent with arthritis. Non-operative management has failed and the patient has requested total hip replacement. The risks, benefits and alternatives to surgery were discussed with the patient prior to proceeding. Risks discussed included, but were not limited to, failure to relieve pain, leg length discrepancy, dislocation, stiffness, infection, nerve damage, deep venous thrombosis, pulmonary embolism, stroke, coma, heart attack, permanent paralysis and , as well as the potential need for eventual revision of the prosthetic. Surgeon: Akiko Muhammad [employer] Education Tutor: Isabel Cerrato Anesthesia Type: General Operative Notes Findings: Severe right hip osteoarthritis, soft bone Closure Type: primary Specimen(s): none sent Prosthetic devices, grafts, tissues, transplants, or devices: Muhammad and nephew anthology size 3 standard offset, one 6.5 mm screw, R3 48 mm cup, neutral poly liner, 32 x -3 cobalt chrome head Estimated Blood Loss (mL): 250 Blood products transfused: none Procedure in detail: The patient was brought to the operating room. Patient was carefully positioned in the supine position. Time-out was performed and antibiotics were given. Anesthesia was induced. She was positioned in the on the table in order to allow hyperextension of the hip. The right lower extremity was prepped and draped in a standard sterile fashion. An anterior right hip incision was made 1 fingerbreadth lateral to the anterior superior iliac spine and extended distally towards the greater trochanter. Dissection was carried out through skin and subcutaneous tissues. Superficial hemostasis was achieved. The fascia over the tensor fascia jessie was defined and incised with a knife. Two Allis clamps were used to grasp the fascia. Tensor fascia jessie was retracted laterally. A gelpi retractor was placed. Dissection was carried out down along the neck. The circumflex vessels were carefully identified and cauterized with the Aqua Mantis. There was good visualization of the femoral neck. A Cobra was placed superior to the neck and the gluteus fibers were carefully stripped from that superior aspect of the capsule. A 2nd retractor was placed along the inferior aspect of the neck. The rectus insertion along the capsule was partially released. A 3rd retractor that was then gently placed over the rim of the acetabulum under the rectus. Capsule was carefully incised and released from the intertrochanteric line circumferentially superior to the mid sagittal line and inferiorly to the mid sagittal line until the lesser trochanter was palpable. A tag stitch was placed both in the superior and inferior limb of the capsular insertion. Along the acetabulum capsule was also released up to the mid sagittal 12:00 position. A portion of the labrum was resected. A saw was used to perform an osteotomy at the level of the intertrochanteric line and the junction of the superior femoral neck leaving approximately 1 finger breath of residual inferior neck above the lesser trochanter. A 2nd cut was made along the femoral neck at the base of the head and a napkin ring of neck was removed. Corkscrew was placed in the femoral head and the head was removed without difficulty. Retractors were then repositioned around the acetabulum. Residual labrum was resected and additional osteophytes were removed. A reamer that was 4 mm below the templated size was placed by hand in the acetabulum and it was reamed to centralize the acetabulum. It was then reamed up to 2 under the templated size and fluoroscopy was brought in to confirm the position of the reaming and depth of reaming. I reamed 1 under the anticipated size. A trial cup was placed and noted that it was appropriately sized and fluoroscopy confirmed position and depth. The component was open and inserted without difficulty fluoroscopic imaging was used to confirm that the cup had been adequately seated and was well positioned. It was further stabilized with a single screw. Neutral poly liner was placed. The cup was tested and noted to be stable. Attention was then directed to the femur. The femur was gently hyperextended additional capsular release was performed as needed in order to allow adequate visualization of the proximal femur with elevation of the femur. Patient was placed in a hyperextended slightly adducted position with maximum external rotation. Box osteotome was used to check for any residual neck as well as sclerotic bone along the trochanter. [place] pepper was placed in the femur. Additional broaching was performed. Canal finder was used to determine the alignment of the canal and position. Size 1 broach was placed. The canal was then appropriately broached up to the templated size as long as there was adequate stability of the broach and serial advancement of the broach without excessive impingement. She did have a fairly tight canal in the medial lateral as well as AP plane. Specific attention was directed at avoiding varus attempting to direct the distal aspect of the broach more anteriorly and avoiding excessive anteversion. Trial reduction showed acceptable range of motion, good stability, no posterior impingement, yarsanism of leg length and appropriate lateral shuck. I also hyperflexed the hip and checked that there was no impingement anteriorly and there was good stability with flexion, adduction and internal rotation. Marcaine and Exparel were injected. The stem was placed without difficulty. Repeat trial reduction and x-ray showed acceptable overall position, length, and no evidence of the femoral fracture. Final head was placed. Wound was meticulously irrigated with normal saline. The hip was reduced and additional Exparel and Marcaine were injected. The capsule was closed with interrupted nonabsorbable sutures. The fascia of the tensor was closed with interrupted and running Vicryl. No drain was placed. Any tensor fascia jessie muscle that appeared to be contused or injured which was a minimal amount was carefully resected. Capsule around the tensor was injected with Exparel and Marcaine. The skin was closed with barbed stitches for the subcutaneous tissue and skin. We also used surgical glue. The wound was dressed sterilely. Brief Betadine soak was also used and was meticulously irrigated with normal saline. Patient was transferred to recovery room in satisfactory condition. Complications: none Post-operative Condition: stable Disposition: Acute Care Plan for aftercare: The patient will be maintained on a standard total hip replacement protocol with weight bearing as tolerated and anterior hip precautions. The patient will receive Aspirin and sequential compression devices for DVT prophylaxis. The patient will be discharged home when safe for the home environment.
[2022-08-22] MEDS: CEFAZOLIN 2 GM/100 ML PREMIX 100 ML IV ×2 (11:05→18:21)
[2022-08-22] MEDS: TRANEXAMIC ACID 1,000 MG VIAL 1000 MG INJ ×2 (11:11→12:26)
--- NOTE | 2022-08-22 11:11 | SUR.OPER ---
Supine on padded [place] table with bilateral legs secured in padded positioning boots and suspended in positioning spars, operative leg in traction per surgeon. Head on one pillow. Arm on non-operative side secured on padded armboard <90 degrees abduction. Arm on operative side padded and resting across chest then secured with tape over sheet. Padded perineal post in place per surgeon. Pt positioned per direction and supervision of Dr Muhammad.
[2022-08-22] MEDS: BUPIVACAINE LIPOSOME 266 MG/20 ML VIAL INJ (11:33)
[2022-08-22] MEDS: BUPIVACAINE 0.5% W/ EPI (PF) 30 ML VIAL INJ (11:34)
[2022-08-22] MEDS: SODIUM CHLORIDE IRRIG SOLUTION 250 ML, POVIDONE-IODINE SPONGE STICKS 1 APPLIC IRR (12:22)
[2022-08-22] MEDS: ONDANSETRON 4 MG/2 ML INJ IV ×2 (13:27→21:58)
[2022-08-22] MEDS: OXYCODONE IR 5 MG TABLET PO (13:28)
--- NOTE | 2022-08-22 13:30 | DI.RAD.S_ITS ---
PROCEDURE: XR HIP W PEL IF DONE RT 2V INDICATIONS: RIGHT TOTAL HIP TECHNIQUE: AP pelvis and lateral view of the right hip acquired. COMPARISON: [facility] [place], CR, XR PELVIS WITH BILATERAL LATERAL HIPS, 05/15/2022, 8:45. Formerly [facility], CR, XR HIP W PEL IF DONE RT 2V, 08/22/2022, 12:59. FINDINGS: Bones: Patient is status post right total hip arthroplasty, with hardware components in expected positions. The hip joint appears congruent. The visualized bony structures appear intact. Soft tissues: Overlying postoperative changes are noted. No suspicious soft tissue densities. IMPRESSION: Status post right hip arthroplasty with expected postoperative findings. Approved by: Markos Gates M.D. on 08/22/2022 at 16:26
[2022-08-22] MEDS: LACTATED RINGERS 1,000 ML 125 ML IV (14:14)
--- NOTE | 2022-08-22 16:15 | PT.IIE ---
Current Diagnoses Unilateral primary osteoarthritis, right hip (08/22/22) Pain in right hip (08/22/22) Surgery Performed Operation Date: 08/22/22 10:45 Actual Procedures p Total Hip Arthroplasty Anterior Approach(Right) - Akiko Muhammad MD Surgical History (Last Updated 08/13/22 @ 11:07 by Jennifer Walker, RN) H/O: hysterectomy History of colonoscopy History of esophagogastroduodenoscopy (EGD) History of surgery (02/2021) History of total left knee replacement (09/11/20) History of total replacement of right shoulder joint (04/28/19) Hx of appendectomy Hx of bilateral cataract extraction (~2017) Hx of dilation and curettage Hx of hemorrhoidectomy Hx of tonsillectomy Medical History (Last Updated 08/13/22 @ 11:09 by Jennifer Walker RN) Anesthesia complication Arthritis Bronchitis Chronic neck and back pain Easy bruisability GERD (gastroesophageal reflux disease) History of IBS HTN (hypertension) Impaired fasting glucose Kidney stones Osteoporosis Prolapse of bladder Stomach ulcer due to nonsteroidal anti-inflammatory drug (NSAID) Physical Therapy Inpatient Evaluation/Re-Eval M1 PT/OT-IP Prior Functional Status Start: 08/22/22 17:45 Freq: NEEDED Status: Active Protocol: Document 08/22/22 16:15 AB (Rec: 08/22/22 17:56 AB [id number]) Medical Review Prior Functional Status Medical History Reviewed Yes Communication able to make needs known Mobility and Gait pt stated that she is independent with all mobilities and ambulation wtihout AD Social History Household Members spouse,family,children Living Arrangements House Number of Floors (Floors) Two Floors Number of Stairs To Enter/Railing? pt will stay on main level of the house has 4 steps with bilateral wide rails to enter and can only hold on to one rail at a time Home Environment High Toilet,Walk in Shower Home Equipment Front Wheel Walker,Straight Cane,Hand Held Shower Additional Social History Comment pt stated that spouse will not be able to assist her but her grand daughter can help and also her daughter will be staying with them for now to assist pt as well. M2 PT-IP Current Condition Start: 08/22/22 17:45 Freq: NEEDED Status: Active Protocol: Document 08/22/22 16:15 AB (Rec: 08/22/22 17:56 AB [id number]) Physical Therapy Current Condition Current Condition Evaluation Date 08/22/22 Treatment Diagnosis s/p R ARGENIS anterior approach; difficulty in walking Onset Date 08/22/22 M3 PT-IP Subjective Start: 08/22/22 17:45 Freq: NEEDED Status: Active Protocol: Document 08/22/22 16:15 AB (Rec: 08/22/22 17:56 AB [email or web address]) Subjective Physical Therapy Visit Type Type Initial Evaluation Visit Start Time 16:14 Visit Stop Time 17:10 Total Visit Minutes 55 Number of COMPLAINT ADJUSTER Visits 0 Physical Therapy Visit Comments Patient Comments agreeable to do PT Therapy Pain Assessment Pain When Pain Assessed At Rest Pain Present Pain Present Pain Reported Location right hip Intensity 4 Pain Management Techniques Distraction,Modification of Treatment,Re-positioning, Timing of Activity with Medications M4 PT-IP Mobility and Gait Start: 08/22/22 17:45 Freq: NEEDED Status: Active Protocol: Document 08/22/22 16:15 AB (Rec: 08/22/22 17:56 AB [email or web address]) PT-Bed Mobility Assessment Supine to Sit Supine to Sit Standby Assistance PT-Transfer Assessment Sit to and From Stand Sit to and from Stand Moderate Assistance,1 Person Assistance,Use of Upper Extremities Equipment Transfer Assistive Device Gait Belt,Front Wheeled Walker Orthotic/Prosthetic Devices or Brace: No Transfers Transfer Destination Bedside Commode Transfer Technique Stand Step Pivot Transfer Ability Level of Assist Minimal Assistance,Moderate Assistance,1 Person Assistance ,Use of Upper Extremities Comments Mobility Comments educated pt on anterior hip precautions. pt completed supine to sit SBA and cued for techniques. pt completed sit to stand mod A but has to sit back down due to uncontrolled bladder. positioned bedside commode next to pt. pt completed sit to stand again mod A and completed step transfer to bedside commode using FWW min to mod A and cues. assisted pt with brief management. completed sit to stand from bedside commode min to mod A and cues. pt with unsteady initial standing and cued for balance. pt ambulated to the chair using FWW ~ 8 ft min to mod A and cues. pt agreed to sit up on the chair. positioned on the chair. call ight and table placed within reach. Caregiver training set up for tomorrow at ~ 9 am. Gait Assessment Gait Gait Assistance Required: Minimum Assistance,Moderate Assistance Distance (Feet) 12 Able to Maintain Weight Bearing Status Yes During Gait Assistive Devices Assistive Device Gait Belt,Front Wheeled Walker Orthotic/Prosthetic Devices or Brace: No Gait Deviations General Gait Pattern Decreased Stride Length, Decreased Feet Clearance Factors Limiting Gait Function Factors Limiting Gait Function Decreased Activity Tolerance, Decreased Strength,Difficulty Following Directions,Limited Range of Motion,Pain,Poor Balance,Poor Safety Awareness PT-Balance Assessment Sitting Balance and Reactions Static Sitting Balance Ability Good Dynamic Sitting Balance Ability Good Standing Balance and Reactions Static Standing Balance Ability Fair Dynamic Standing Balance Ability Fair Device Used FWW M5 PT-IP Objective Assessments Start: 08/22/22 17:45 Freq: NEEDED Status: Active Protocol: Document 08/22/22 16:15 AB (Rec: 08/22/22 17:56 AB [email or web address]) Orientation Orientation/Cognition Level of Alertness Alert Orientation Name,Place,Situation Language Function Ability No Deficits Noted Safety Awareness Decreased Safety Awareness Memory Description Short Term Impaired Gross Range of Motion Lower Extremity ROM Assessment Within Functional Limits Strength Lower Extremity Strength Hip 4-/5 Knee 4-/5 Sensation Assessment Sensation Gross Sensation WNL Muscle Tone Muscle Tone WNL Yes M6 PT-IP Treatment Start: 08/22/22 17:45 Freq: NEEDED Status: Active Protocol: Document 08/22/22 16:15 AB (Rec: 08/22/22 17:56 AB [email or web address]) Physical Therapy Treatment Education Education Provided Precautions,Weight Bearing Status,Post-Op Packet,Safety M7 PT-IP Assessment and Plan Start: 08/22/22 17:45 Freq: NEEDED Status: Active Protocol: Document 08/22/22 16:15 AB (Rec: 08/22/22 17:56 AB [email or web address]) PT Summary Assessment and Plan Potential Rehabilitation Potential Good Status of Condition at Evaluation Evolving Summary Impairments Pain,ROM,Strength,Balance, Coordination,Sensation,Tone, Cognition,Bed Mobility, Transfers,Gait,Activity Tolerance Assessment Summary pt requiring mod A for sit to stand and min to mod A for ambulation using FWW. pt requiring cues for safety and precautions. caregiver training set up for tomorrow at 9 am. will continue to assess progress. pt stated that she has outpt PT set up. Goals Bed Mobility Goal Independent Transfer Goal Independent,Front Wheeled Walker Gait Goal Independent,Front Wheel Walker Gait Distance 150 Other Goals up/down 4 steps 1 rail SBA Days to Meet Goals 5 Frequency of Treatment Frequency Of Treatment Twice a Day Treatment Plan Physical Therapy Treatment Plan Bed Mobility Training,Transfer Training,Gait Training, Therapeutic Exercise,Balance Retraining,Post Op Education, Discharge Planning,Hot or Cold Pack,Neuromuscular Re-ed, Coordination Retraining,Manual Therapy Other Recommendations and Next Treatment Caregiver train/20 @ 9 am Focus Precautions Anterior Hip Precautions No Hip Extension,No Hip External Rotation Weight Bearing Status Weight Bearing Status Weight Bear as Tolerated Allowed Weight Bearing Amount (enter % RLE WBAT or #) (%) Recommendations To Nursing Amount of Assist Needed 1 Person Assist Discharge Recommendations PT Discharge Recommendations Home with Assistance, Outpatient PT Transportation Needs at Discharge Private Vehicle
[2022-08-22] MEDS: ACETAMINOPHEN 325 MG TABLET 650 MG PO (18:21)
[2022-08-22] MEDS: ASPIRIN EC 81 MG TABLET PO (21:56)
[2022-08-22] MEDS: DOCUSATE 100 MG CAPSULE PO (21:56)
[2022-08-22] MEDS: AMLODIPINE 5 MG TABLET 10 MG PO (21:56)
[2022-08-22] MEDS: lisinopriL 20 MG TABLET PO (21:57)
[2022-08-22] MEDS: CHOLECALCIFEROL (VITAMIN D3) 1,000 UNIT TABLET 4000 UNIT PO (21:57)
[2022-08-22] MEDS: NORTRIPTYLINE HCL 25 MG CAPSULE 50 MG PO (21:57)
[2022-08-22] MEDS: MELATONIN 3 MG TABLET 9 MG PO (22:00)
[2022-08-23] VITALS: BP 142/59; PULSE 74; RESP 16; TEMP 36.4; O2SAT 95
[2022-08-23] MEDS: ACETAMINOPHEN 325 MG TABLET 650 MG PO ×2 (00:44→06:09)
[2022-08-23] MEDS: CEFAZOLIN 2 GM/100 ML PREMIX 100 ML IV (03:37)
[2022-08-23 04:00] VITALS: BP 127/55; PULSE 70; RESP 16; TEMP 36.6; O2SAT 95
[2022-08-23 04:55] LABS: Hematocrit 36.2 % (36-46); Hemoglobin 12.2 g/dL (12.0-16.0)
[2022-08-23] MEDS: PANTOPRAZOLE DR 20 MG TABLET PO (06:09)
--- NOTE | 2022-08-23 07:05 | P.DS_ITS ---
History of Present Illness History of Present Illness Date Patient Seen: 08/23/22 Time Patient Seen: 07:06 Chief complaint: OPB - R ARGENIS Anterior Narrative: Ms. Juan is a 76-year-old female POD#1 from right total hip arthroplasty anterior approach with Dr. Muhammad. She is progressing as tolerated postoperatively. Her pain is well controlled with Tylenol, has not used any oxycodone at this point. She has been urinating without difficulty. She worked with Physical therapy yesterday. She has no concerns and would like to go home today. She states she does not know who is coming to the 9:00 a.m. physical therapy caregiver training this morning but it could be anyone of her family members. Discharge Providers Provider Discharge Date: 08/23/22 Primary care physician: Ronit Lizarraga PA-C Consults: 08/22/22 06:00 Consult to Anesthesiology Routine Comment: Consulting Provider: Anesthesiologist Reason for consultation: Regional block for post operative pain control 08/22/22 13:57 Consult to Discharge Planning Routine Comment: Consult to Physical Therapy Evaluate & Treat Comment: Physician Instructions: post op ARGENIS protocol Discharge provider: Bijal Millan PA-C Summary Hospital Course Discharge Diagnosis: Right hip osteoarthritis, Right total hip arthroplasty anterior approach Hospital Course: Operative Date/Time/Diagnoses Date of procedure: 08/22/22 Time of procedure: 11:00 Pre-op diagnosis: right hip OA Post-op diagnosis: same Procedure & Clinicians Procedure: Right total hip arthroplasty anterior approach Same procedure as scheduled: Yes Indications: The patient has had progressively worsening right hip pain with radiographic changes consistent with arthritis. Non-operative management has failed and the patient has requested total hip replacement. The risks, benefits and alternatives to surgery were discussed with the patient prior to proceeding. Risks discussed included, but were not limited to, failure to relieve pain, leg length discrepancy, dislocation, stiffness, infection, nerve damage, deep venous thrombosis, pulmonary embolism, stroke, coma, heart attack, permanent paralysis and , as well as the potential need for eventual revision of the prosthetic. Surgeon: Akiko Muhammad Bilingual Kindergarten Teacher: Isabel Cerrato Anesthesia Type: General Operative Notes Findings: Severe right hip osteoarthritis, soft bone Closure Type: primary Specimen(s): none sent Prosthetic devices, grafts, tissues, transplants, or devices: Muhammad and nephew anthology size 3 standard offset, one 6.5 mm screw, R3 48 mm cup, neutral poly liner, 32 x -3 cobalt chrome head Estimated Blood Loss (mL): 250 Blood products transfused: none Status at Discharge Cognitive/behavioral status at discharge: oriented Functional status at discharge: uses cane/walker Overall status at discharge: patient is progressing back to baseline Exam Vital Signs (past 8 hours): - 08/23/22 00:00 08/23/22 04:00 Temperature 97.5 F L 97.9 F Pulse Rate 74 70 Respiratory Rate 16 16 Blood Pressure 142/59 H 127/55 L Pulse Oximetry 95 95 Oxygen Delivery Method Room Air Oxygen Flow Rate 0 Narrative Exam Narrative: Patient is awake alert and oriented lying in bed comfortably. Strength and sensation intact to lower extremities bilaterally. Right calf is soft, compressible, nontender with no palpable cords or masses. Right anterior hip intraoperative Aquacel bandage clean dry and intact. Ambulates using cane/walker. Objective Labs Result Diagrams: 08/23/22 04:41 Labs: Laboratory Results - last 24 hr 08/23/22 04:41 Hgb 12.2 Hct 36.2 PFSH Medical History Anesthesia complication Arthritis Bronchitis Chronic neck and back pain Easy bruisability GERD (gastroesophageal reflux disease) History of IBS HTN (hypertension) Impaired fasting glucose Kidney stones Osteoporosis Prolapse of bladder Stomach ulcer due to nonsteroidal anti-inflammatory drug (NSAID) Surgical History H/O: hysterectomy History of colonoscopy History of esophagogastroduodenoscopy (EGD) History of surgery (02/2021) History of total left knee replacement (09/11/20) History of total replacement of right shoulder joint (04/28/19) Hx of appendectomy Hx of bilateral cataract extraction (~2017) Hx of dilation and curettage Hx of hemorrhoidectomy Hx of tonsillectomy Social History household members: spouse, family and children Smoking Status: Never smoker alcohol intake: never Discharge Assessment & Plan Assessment and Plan Assessment: Right hip osteoarthritis, POD#1 right total hip arthroplasty anterior approach Plan of Treatment: Standard total hip replacement protocol with weight bearing as tolerated and anterior hip precautions. Patient's postoperative medications have been prescribed prior to surgery including oxycodone, meloxicam, Tylenol, aspirin 81 mg BID. Plan for discharge home today after physical therapy appointment and caregiver training at 0900. She may shower, leave Aquacel dressing intact until 1st postoperative appointment. Continue with physical therapy outpatient as scheduled. Discharge Plan Discharge Plan Patient Disposition: Home Discharge orders & Medications Discharge Orders: Discharge (Order); Ordered 08/23/22 Ordered By: Bijal Millan Prescriptions: Continued amlodipine 10 MG tablet 10 mg PO QPM Qty: 0 Rx Instructions: After dinner lisinopril 20 MG tablet 20 mg PO QPM Qty: 0 Rx Instructions: After dinner nortriptyline 25 mg Capsule 50 mg PO BEDTIME Multi-Day with Iron 18-400 mg-mcg Tablet 1 tab PO DAILY Vitamin C 1,000 mg Tablet Extended Release 1,000 mg PO DAILY cranberry 400 mg Capsule 400 mg PO DAILY zinc 50 mg Tablet 50 mg PO DAILY B-complex with vitamin C [Super B/C] Capsule 1 cap PO DAILY cholecalciferol (vitamin D3) [Vitamin D3] 2,000 unit Capsule 4,000 unit PO BID omega 6-ypp-kbs-fish oil [Fish Oil] 1,000 mg (120 mg-180 mg) Capsule 1 cap PO DAILY turmeric 400 mg Capsule 1,000 mg PO DAILY calcium 600 mg Capsule 600 mg PO DAILY Glucosamine Complex-MSM Capsule 1 cap PO DAILY coQ10 (ubiquinol) 100 mg Capsule 300 mg PO DAILY strontium [id number] 680-30 mg Tablet 1 tab PO QPM omeprazole 20 mg Tablet,Delayed Release (Dr/Ec) 20 mg PO DAILY melatonin 10 mg Tablet 10 mg PO BEDTIME PRN (Reason: Sleep) Follow up/Referrals: Ronit Lizarraga PA-C [Primary Care Provider] - Akiko Muhammad MD [Physician] - As previously scheduled (Follow up w/ Eduarda Dunn PA-C, on 09/06/2022 @ 1:00 pm at [facility] office in [place].) Diet/Activity/Treatments Diet: Diet as Tolerated Activity: Weight bearing as tolerated to right leg. Anterior hip precautions. Cold/Heat Therapy: Ice to hip as needed for pain. Skin/Wound/Dressing Care Report to your healthcare provider any signs of infection, such as:: chills, fever, night sweats, unusual drainage and unusual redness Dressing: May shower. Leave Aquacel dressing in place until follow up in office. No bathing or otherwise soaking incision. Call the office if the dressing becomes saturated inside. Visit Report/Discharge Packet Stand Alone Forms: Patient Portal/API, Stroke Signs & Symptoms Discharge Data Primary Care Provider: Ronit Lizarraga Attending Provider: Akiko Muhammad
[2022-08-23] MEDS: MULTIVITAMIN 1 TABLET 1 TAB PO (08:41)
[2022-08-23] MEDS: DOCUSATE 100 MG CAPSULE PO (08:41)
[2022-08-23] MEDS: ASPIRIN EC 81 MG TABLET PO (08:41)
[2022-08-23] MEDS: ASCORBIC ACID 500 MG TABLET 1000 MG PO (08:41)
[2022-08-23] MEDS: CHOLECALCIFEROL (VITAMIN D3) 1,000 UNIT TABLET 4000 UNIT PO (08:41)
[2022-08-23] MEDS: FISH OIL 1,000 MG CAPSULE 1000 MG PO (08:41)
--- NOTE | 2022-08-23 09:10 | PT.IPTN ---
Current Diagnoses Unilateral primary osteoarthritis, right hip (08/22/22) Pain in right hip (08/22/22) Surgery Performed Operation Date: 08/22/22 10:45 Actual Procedures p Total Hip Arthroplasty Anterior Approach(Right) - Akiko Muhammad MD Physical Therapy Treatment Note M2 PT-IP Current Condition Start: 08/22/22 17:45 Freq: NEEDED Status: Discharge Protocol: Document 08/22/22 16:15 AB (Rec: 08/22/22 17:56 AB [facility] Therapy Current Condition Current Condition Evaluation Date 08/22/22 Treatment Diagnosis s/p R ARGENIS anterior approach; difficulty in walking Onset Date 08/22/22 M3 PT-IP Subjective Start: 08/22/22 17:45 Freq: NEEDED Status: Discharge Protocol: Document 08/23/22 09:10 AB (Rec: 08/23/22 14:25 AB [email or web address]) Subjective Physical Therapy Visit Type Type Treatment Note Visit Start Time 09:10 Visit Stop Time 10:01 Total Visit Minutes 51 Number of COMMERCIAL ESTIMATOR Visits 0 Physical Therapy Visit Comments Patient Comments agreeable to do PT Therapy Pain Assessment Pain When Pain Assessed At Rest Pain Present Pain Present Pain Reported Location right hip Intensity 3 Scale Used Numeric (0 - 10) Pain Management Techniques Modification of Treatment,Re- positioning,Timing of Activity with Medications M4 PT-IP Mobility and Gait Start: 08/22/22 17:45 Freq: NEEDED Status: Discharge Protocol: Document 08/23/22 09:10 AB (Rec: 08/23/22 14:25 AB [email or web address]) PT-Bed Mobility Assessment Supine to Sit Supine to Sit Standby Assistance Sit to Supine Sit to Supine Standby Assistance PT-Transfer Assessment Sit to and From Stand Sit to and from Stand Standby Assistance,Contact Guard Assistance,1 Person Assistance,Use of Upper Extremities Equipment Transfer Assistive Device Gait Belt,Front Wheeled Walker Orthotic/Prosthetic Devices or Brace: No Transfers Transfer Destination Chair Transfer Technique ambulated Transfer Ability Level of Assist Standby Assistance,Contact Guard Assistance,1 Person Assistance,Use of Upper Extremities Comments Mobility Comments pt's daughter in room for caregiver training. educated caregiver regarding pt's anterior hip precautions. pt completed supine to sit SBA but with max cues. educated pt on bed mobility techniques. pt repeated sit<>supine SBA without cues provided on 2nd set. able to sit on EOB SBA educated daughter reagrding use of safety belt and how to assist pt. daughter was able to put safety belt on pt and assist pt with sit to stand and ambulation using FWW ~ 15 ft. pt agreed to do stairs. ambulated out in the hallway with daughter assisting using FWW SBA to CGA ~ 75 ft. educated pt and daughter regarding stair climbing techniques. pt completed up/ down steps holding on to R rail with B hands CGA. pt assisted back to her room. pt requested to use the toilet and ambulated from w/c to the toilet using FWW SBA. left pt with daughter. informed nurse. Gait Assessment Gait Gait Assistance Required: Standby Assistance,Contact Guard Assist Distance (Feet) 75 Able to Maintain Weight Bearing Status Yes During Gait Assistive Devices Assistive Device Gait Belt,Front Wheeled Walker Orthotic/Prosthetic Devices or Brace: No Gait Deviations General Gait Pattern Decreased Stride Length, Decreased Feet Clearance Factors Limiting Gait Function Factors Limiting Gait Function Decreased Activity Tolerance, Decreased Strength,Limited Range of Motion,Pain,Poor Balance,Poor Safety Awareness Stair Climbing Assessment Evaluation Level of Assist On Stairs Contact Guard Assistance Devices Stair Climbing Assistive Devices Right Railing Technique/Endurance Stair Climbing Direction Ascend and Descend Stair Climbing Technique Step to Step Number of Steps Climbed 3 Stair Climbing Set # Repetitions (reps) 1 M5 PT-IP Objective Assessments Start: 08/22/22 17:45 Freq: NEEDED Status: Discharge Protocol: Document 08/22/22 16:15 AB (Rec: 08/22/22 17:56 AB [email or web address]) Orientation Orientation/Cognition Level of Alertness Alert Orientation Name,Place,Situation Language Function Ability No Deficits Noted Safety Awareness Decreased Safety Awareness Memory Description Short Term Impaired Gross Range of Motion Lower Extremity ROM Assessment Within Functional Limits Strength Lower Extremity Strength Hip 4-/5 Knee 4-/5 Sensation Assessment Sensation Gross Sensation WNL Muscle Tone Muscle Tone WNL Yes M6 PT-IP Treatment Start: 08/22/22 17:45 Freq: NEEDED Status: Discharge Protocol: Document 08/23/22 09:10 AB (Rec: 08/23/22 14:25 AB [email or web address]) Physical Therapy Treatment Education Education Provided Precautions,Weight Bearing Status,Safety M7 PT-IP Assessment and Plan Start: 08/22/22 17:45 Freq: NEEDED Status: Discharge Protocol: Document 08/23/22 09:10 AB (Rec: 08/23/22 14:25 AB [id number]) PT Summary Assessment and Plan Potential Rehabilitation Potential Good Summary Impairments Pain,ROM,Strength,Balance, Coordination,Sensation,Tone, Cognition,Bed Mobility, Transfers,Gait,Activity Tolerance Progress Towards Goals Progressing Toward Goals Assessment Summary caregiver training conducted and daughter was able to assist pt with mobility. pt has outpt PT set up. pt may go home when medically stable. Goals Bed Mobility Goal Independent Transfer Goal Independent,Front Wheeled Walker Gait Goal Independent,Front Wheel Walker Gait Distance 150 Other Goals up/down 4 steps 1 rail SBA Days to Meet Goals 5 Frequency of Treatment Frequency Of Treatment Twice a Day Treatment Plan Physical Therapy Treatment Plan Bed Mobility Training,Transfer Training,Gait Training, Therapeutic Exercise,Balance Retraining,Post Op Education, Discharge Planning,Hot or Cold Pack,Neuromuscular Re-ed, Coordination Retraining,Manual Therapy Precautions Anterior Hip Precautions No Hip Extension,No Hip External Rotation Weight Bearing Status Weight Bearing Status Weight Bear as Tolerated Allowed Weight Bearing Amount (enter % RLE WBAT or #) (%) Recommendations To Nursing Amount of Assist Needed 1 Person Assist Discharge Recommendations PT Discharge Recommendations Home with Assistance, Outpatient PT Transportation Needs at Discharge Private Vehicle
[2022-08-23] MEDS: OXYCODONE IR 5 MG TABLET PO (09:27)
--- NOTE | 2022-08-23 09:50 | PC.NURSE ---
Patient given oxycodone as she states that her pain is a 4/10 to her r.knee. She is working with physical therapy now and doing stairs. She has an aquacel dressing with master wrap to knee that is cdi s any drainage. CMS wnl, patient states that she has a slight numbness to r.thigh but can feel touch. Daughter in room and helpful with care.
== END 2022-08-23 11:37 | disposition home or self-care (01) ==
LOC: OR 08:41 → AC 08:42
PROVIDERS: PCP Physician Assistant; Referring Provider Orthopaedic Surgery; Visit Provider Orthopaedic Surgery
PROC: (CPT 27130; principal; 2022-08-22 10:45)
DX: M16.11 Unilateral primary osteoarthritis, right hip (principal); I10 Essential (primary) hypertension
CPT/HCPCS: 27130; 36415; 73502; 76000; 85014; 85018; 97162; 97530; C1776; A9270; C9290; J0690; J1100; J2250; J2405; J2704; J3010

== ENCOUNTER → 2023-11-29 15:42 | Outpatient (CLI) | payer OTHER, SELFPAY ==
[2022-08-22 17:33] VITALS: BMI 25.2
--- NOTE | 2023-11-29 | DI.MRI.S_ITS ---
PROCEDURE: MR FOOT RT WO CON INDICATIONS: PAIN OF RT GREAT TOE TECHNIQUE: Multiphasic, multisequence MRI of the forefoot was performed, without intravenous contrast administration. COMPARISON: [facility] [place], [place], XR TOE(S) RIGHT, 02/01/2020, 13:48. FINDINGS: Image quality: Excellent. Bones and joints: No bone marrow contusions or metatarsal stress fractures. The sesamoid bones appear in expected positions, without internal edema. No intraosseous lesions. Mild scattered degenerative changes are seen in the interphalangeal joints of the toes. Mild degenerative changes of the 1st metatarsophalangeal joint. Mild subchondral cystic changes are seen at the 3rd and 4th tarsometatarsal joints. Soft tissues: Mild edema is seen within the abductor hallucis muscle that is suspicious for a low-grade strain. The remaining visualized plantar foot muscles demonstrate normal signal and bulk. A small amount of fluid is seen along the distal lateral extensor digitorum longus tendon at the level of the tarsometatarsal joints extending nearly to the insertion of the 5th metatarsal base, which may represent tenosynovitis, chronic partial tendon tearing, or ganglion cyst extending along the tendon sheath. Visualized flexor and extensor tendons otherwise appear intact, without tenosynovitis. The distal insertions of the peroneus brevis and longus tendons appear intact. The principal Lisfranc ligament appears intact. Sagittal images demonstrate no evidence for plantar plate tears. IMPRESSION: 1. Mild intramuscular edema within the abductor hallucis muscle may indicate low-grade muscle strain. 2. Fluid signal along the distal lateral extensor digitorum longus tendon near the 5th metatarsal base may indicate tenosynovitis, chronic partial tendon tearing, or a ganglion cyst extending along the tendon sheath. 3. Mild degenerative changes in the midfoot and forefoot. Approved by: Markos Gates M.D. on 12/01/2023 at 10:15
== END ==
PROVIDERS: PCP Physician Assistant; Referring Provider Podiatrist; Visit Provider Podiatrist
DX: R60.0 Localized edema (principal); M79.674 Pain in right toe(s)
CPT/HCPCS: 73718